=== PATIENT | male | born 1945 | race Caucasian/White ===

== ENCOUNTER 2016-10-12 09:21 | Day surgery (SDC) | payer MEDICARE, OTHER ==
[~2016-10-12 09:21] MED LIST: EPINEPHrine 1:1000 1 MG/ML SDV ONE; Lactated Ringers 1,000 ML IV SCH; Lidocaine 1% 2 ML SDV ONE; Lidocaine 1%/Sod Bicarbonate in NS 8.4% 1 ML Syringe IV PRN; Midazolam 1 MG/ML 2 ML SDV ONE; Ondansetron 4 MG/2 ML SDV ONE; Propofol 200 MG/20 ML SDV ONE; Rocuronium 50 MG/5 ML Vial ONE; Ropivacaine 0.5% 5 MG/ML 30 ML SDV ONE; Sodium Chloride 0.9% 10 ML Syringe FLUSH PRN; fentaNYL 250 MCG/5 ML SDV ONE
--- NOTE | 2016-10-12 09:44 | PCM.PREANE ---
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 Respiratory: Reports: no symptoms Cardiovascular: Reports: blood pressure problem, dyspnea on exertion (sometimes - walked 3 miles and did) GI: Reports: no symptoms Other: Reports: easy bruising, sinus problem (mouth breather) - PHYSICAL ASSESSMENT HR: 66 O2 Sat by Pulse Oximetry: 95 RR: 16 BP: 121/86 Temp: 98.3 F Height: 5 ft 9 in Weight: 79.832 kg NPO Status Date: 10/11/16 NPO Status Time: 21:00 ASA Class: 3 Mental Status: alert & oriented x3 Airway Class: Mallampati = 1 Dentition: Reports: normal dentition, missing tooth/teeth Thyro-Mental Finger Breadths: 2 Mouth Opening Finger Breadths: 3 ROM/Head Extension: full Respiratory Status: lungs clear to auscultation bilaterally Cardiovascular Status: regular rate & rhythm, normal S1, S2, no murmur, blood pressure WNL - LAB Values: Laboratory Last Values MRSA (PCR) Negative 10/10/16 10:37 labs reviewed. - IMAGING/EKG Impressions: 10/09/16 ekg sr 57 - ALLERGIES Allergies/Adverse Reactions: Allergies Allergy/AdvReac Type Severity Reaction Status Date / Time Sulfa (Sulfonamide Allergy Hives Verified 10/12/16 10:24 Antibiotics) - BLOOD Blood Available: No - ANESTHESIA PLAN Medication Ordered: Betablocker Beta Yovani: Metoprolol Beta-Yovani Last Dose Date: 10/12/16 Beta-Yovain Last Dose Time: 08:15 Anesthesia Type Planned: general anesthesia - ACKNOWLEDGEMENTS Pt an appropriate candidate for the planned anesthesia: Yes Alternatives and risks of anesthesia discussed w pt/guardian: Yes Pt/Guardian understands and agree with anesthesia plan: Yes PreAnesthesia Questionnaire HEENT History: Reports: Impaired vision Cardiovascular History: Reports: CAD, Hypertension, PTCA Respiratory History: Reports: None Gastrointestinal History: Reports: GERD, Other (see below) Other Gastrointestinal History: esophagitis Genitourinary History: Reports: BPH, Other (see below) Other Genitourinary History: prostatitis 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 Musculoskeletal History: Reports: Osteoarthritis Other Musculoskeletal History: osteoarthritis spine with myelopathy, synovial cyst of spinal spine, rotator cuff disorder, bursitis Neurological History: Reports: Other (see below) Other Neuro History: dizziness, headache Psychiatric History: Reports: None Endocrine/Metabolic History: Reports: None Hematologic History: Reports: Other (see below) Other Hematologic History: bacteremia Immunologic History: Reports: None Oncologic (Cancer) History: Reports: None Dermatologic History: Reports: None - Past Surgical History Head Surgeries/Procedures: Reports: None HEENT Surgical History: Reports: Other (see below) Other HEENT Surgeries/Procedures: keratomy to right eye Cardiovascular Surgical History: Reports: Coronary artery bypass, Other (see below) Other Cardiovascular Surgeries/Procedures: PTCA with stent GI Surgical History: Reports: Colonoscopy Neurological Surgical History: Reports: Other (see below) (back surgery times 2- 3) Musculoskeletal Surgical History: Reports: Other (see below) (ankle) - SUBSTANCE USE Smoking Status *Q: Former Smoker (quit december 1971) Tobacco Use Within Last Twelve Months: Snuff/Dip (quit 2) Second Hand Smoke Exposure: No Days Per Week of Alcohol Use: 7 Number of Drinks Per Day: 3 (whiskey) Total Drinks Per Week: 21 Date of Last Drink: 10/11/16 Time of Last Drink: 20:00 (2 whiskey) Recreational Drug Use History: No - HOME MEDS Home Medications: Home Meds Furosemide [Lasix] 20 mg PO DAILY 04/23/14 [History] Pravastatin [Pravachol] 20 mg PO DAILY 04/23/14 [History] Tamsulosin [Flomax] 0.4 mg PO DAILY 04/23/14 [History] Metoprolol Succinate [Toprol XL] 200 mg PO DAILY 12/25/14 [History] Multivitamin [Multi-Vitamin Daily] 2 tab PO DAILY 12/25/14 [History] Nitroglycerin [Nitrostat] 1 tab SL ASDIRECTED 10/11/16 [History] Reumofan 1 dose PO DAILY 10/11/16 [History] Ubidecarenone [Coq-10] 1 cap PO DAILY 10/11/16 [History] Acetaminophen/HYDROcodone [[place] 325-5 MG] 1 - 2 tab PO Q6H PRN #40 tablet 10/12 [Rx] Cyclobenzaprine [Flexeril] 10 mg PO TID PRN #40 tablet 10/12/16 [Rx] - CURRENT (IN HOUSE) MEDS Current Meds: Current Medications Lactated Ringer's (Ringers, Lactated) 1,000 mls @ 125 mls/hr IV ASDIRECTED TONI Stop: 10/12/16 23:00 Lidocaine/Sodium Bicarbonate (Buffered Lidocaine 1% In Ns 8.4%) 0.25 ml IV ONETIME PRN PRN Reason: Prior to IV Start Stop: 10/12/16 18:00 Sodium Chloride (Saline Flush) 10 ml FLUSH ASDIRECTED PRN PRN Reason: Keep Vein Open Stop: 10/12/16 18:00 Discontinued Medications Epinephrine HCl (Adrenalin 1:1000) Confirm Administered Dose 1 mg .ROUTE .STK- MED ONE Stop: 10/12/16 08:31 Fentanyl (Sublimaze) Confirm Administered Dose 250 mcg .ROUTE .STK-MED ONE Stop: 10/12/16 08:46 Lidocaine HCl (Lidocaine 1%) Confirm Administered Dose 4 ml .ROUTE .STK-MED ONE Stop: 10/12/16 08:00 Lidocaine HCl (Lidocaine 1%) Confirm Administered Dose 4 ml .ROUTE .STK-MED ONE Stop: 10/12/16 08:46 Midazolam HCl (Versed 1 Mg/Ml) Confirm Administered Dose 2 mg .ROUTE .STK-MED ONE Stop: 10/12/16 08:46 Ondansetron HCl (Zofran) Confirm Administered Dose 4 mg .ROUTE .STK-MED ONE Stop: 10/12/16 08:45 Propofol (Diprivan 20 Ml) Confirm Administered Dose 200 mg .ROUTE .STK-MED ONE Stop: 10/12/16 08:00 Rocuronium [place] (Zemuron) Confirm Administered Dose 50 mg .ROUTE .STK-MED ONE Stop: 10/12/16 08:45 Ropivacaine (Naropin 0.5%) Confirm Administered Dose 30 ml .ROUTE .STK-MED ONE Stop: 10/12/16 08:32
[2016-10-12] MEDS ORDERED: EPINEPHrine 1:1000 1 MG/ML 30 ML MDV ONE (10:13)
[2016-10-12] MEDS ORDERED: Triamcinolone Acetonide 40 MG/ML 1 ML MDV ONE ×2 (10:13→10:14)
[2016-10-12] MEDS ORDERED: ceFAZolin 1 GM Vial ONE (10:26)
--- NOTE | 2016-10-12 10:29 | PCM.SN ---
- Free Text/Narrative Note: [id number] Time out performed. Requested to place left interscale block with ultrasound guidance and nerve stimulator for post op pain control per Dr. Urbina and patient. Preop diagnosis left shoulder pain. Procedure is left shoulder arthrosocpy with rotator cuff repair and any indicated procedures. Informed consent obtained. Monitors and O2 placed at 2 l per n/c. Versed 2 mg and Fentanyl 50 mcg given IV total. Patient awake and talking during procedure. Left neck and clavicle area prepped with chlorprep. Sterile gloves, hat and mask worn. US probe with sterile sleeve placed midclavicular with ID of brachial plexus and subclavian artery. Brachial plexus followed cephalad to level of cricoid. Lidocaine 1% local anesthetic injected prior to block placement. 22 g 2 inch stimplex needle advanced with US guidance to brachial plexus. Positive forearm response at ..4mA with nerve stimulator. Ceased with saline injection.Ropivacaine 0.5% with epi 1:200,000 injected in increments of 5 ml with negative aspiration before each injection to a total of 30 ml. Good spread of local anesthetic seen on US. Patient tolerated procedure well. Vitals stable with no complaints. See nurses notes. Benjie CHURCHILL
[2016-10-12] MEDS ORDERED: ePHEDrine/Normal Saline 25 MG/5 ML Syringe ONE ×2 (11:17→11:40)
[2016-10-12] MEDS ORDERED: Phenylephrine/Normal Saline 100 MCG/ML 10 ML Syringe ONE (11:41)
[2016-10-12] MEDS ORDERED: Lactated Ringers 1,000 ML ONE (11:55)
[2016-10-12] MEDS: Bupivacaine 0.25% 30 ML SDV ONE ×2 (12:35→12:50)
[2016-10-12] MEDS ORDERED: fentaNYL 100 MCG/2 ML SDV IVPUSH PRN (13:00)
[2016-10-12] MEDS ORDERED: Meperidine PF 50 MG/ML Syringe IVPUSH PRN (13:00)
[2016-10-12] MEDS ORDERED: HYDROmorphone 0.5 MG/0.5 ML Syringe IVPUSH PRN (13:00)
[2016-10-12] MEDS ORDERED: Ondansetron 4 MG/2 ML SDV IVPUSH PRN (13:00)
--- NOTE | 2016-10-12 13:00 | PCM.POSTAN ---
POST ANESTHESIA ASSESSMENT - MENTAL STATUS Mental Status: alert, oriented - VITAL SIGNS Pulse Rate: 78 SaO2: 96 Resp Rate: 12 Blood Pressure: 126/80 Temperature: 97.1 F - RESPIRATORY Respiratory Status: respiratory rate WNL, airway patent, O2 saturation stable, supplemental oxygen - CARDIOVASCULAR CV Status: pulse rate WNL, blood pressure stable - GASTROINTESTINAL GI Status: no symptoms - PAIN Pain Score: 0 - POST OP HYDRATION Hydration Status: adequate & stable
--- NOTE | 2016-10-12 13:51 | PCM48HPAN ---
Post Anesthesia Note - EVALUATION WITHIN 48HRS OF ANESTHETIC Vital Signs in Normal Range: Yes Patient Participated in Evaluation: Yes Respiratory Function Stable: Yes Airway Patent: Yes Cardiovascular Function Stable: Yes Hydration Status Stable: Yes Pain Control Satisfactory: Yes Nausea and Vomiting Control Satisfactory: Yes Mental Status Recovered: Yes
[2016-10-12 14:05] VITALS: BP 117/81
--- NOTE | 2016-10-30 08:57 | PCM.OPNOTE ---
- General Post-Op/Procedure Note Date of Surgery/Procedure: 11/09/16 Operative Procedure(s): left shoulder arthroscopy with biceps tenotomy with massive rotator cuff repair and right shoulder steroid injection Pre Op Diagnosis: left shoulder rotator cuff tear. left shoulder biceps tendinopathy. right shoulder rotator cuff tear Post-Op Diagnosis: Same Anesthesia Technique: General ET tube, Local, Regional block Primary Surgeon: Joe Urbina Anesthesia Provider: Annette Rios Structures Technician: Farhana Robison Complications: None Condition: Good
--- NOTE | 2016-10-30 09:49 | OR ---
DATE OF OPERATION: 10/12/2016 SURGEON: Joe Urbina MD OPERATION PERFORMED: Left shoulder video arthroscopy with biceps tenotomy with massive rotator cuff repair and right shoulder steroid injection. PREOPERATIVE DIAGNOSIS: 1. Left shoulder rotator cuff tear. 2. Left shoulder biceps tendinopathy. 3. Right shoulder rotator cuff tear. POSTOPERATIVE DIAGNOSIS: 1. Left shoulder rotator cuff tear. 2. Left shoulder biceps tendinopathy. 3. Right shoulder rotator cuff tear. ANESTHESIA: General endotracheal intubation with local and regional block. ANESTHESIA PROVIDER: Annette Rios CRNA. SPINNER TENDER: Farhana Robison PA-C ESTIMATED BLOOD LOSS: 5 mL. COMPLICATIONS: None. CONDITION: Stable. DESCRIPTION OF PROCEDURE: The patient was identified in the preop holding area. Proper site was marked and identified by the surgeon. The patient was taken back to the operating theater, where after adequate anesthesia, the patient was placed in a lazy right lateral decubitus position. All bony prominences were well padded. A wedge was placed posteriorly. The patient's left shoulder was then sterilely prepped and draped in the usual sterile fashion. OR-wide time-out was performed. The patient received 2 grams of IV Ancef. At this time, a posterior incision was made. The scope trocar was introduced, after 12 pounds of traction was applied to the left upper extremity. The scope trocar was introduced into the glenohumeral joint. There was noted to be significant erythema throughout the glenohumeral joint. Biceps tendon showed significant fraying throughout the intra-articular portion, so biceps tenodesis was unable to be performed. At this time, we did a tenotomy including part of the superior labrum of the biceps tendon after an anterior portal was created. There was noted to be a large massive rotator cuff tear at both the supra and infraspinatus tendons with retraction nearly to the glenoid. There was no significant chondromalacia noted of the glenoid or the humeral head. At this time, scope trocar was removed and placed in the subacromial space. A lateral portal was created. At this time, there was excursion of the tendon, although, we did have to medialize the footprint. The footprint was then medialized with the use of a resector and a bur. Two medial 4.75 Arthrex SwiveLock anchors were then placed medially. The 2 limbs of the FiberWire were then tied for the anchors, and then the limbs of the FiberTape were brought out laterally, and two 4.75 SwiveLock anchors were placed out laterally for a double-row repair. There was found to be good adequate repair of the rotator cuff at this time. Excess saline was drained from the shoulder. At this time, a right shoulder corticosteroid injection was done. Under sterile technique, 2 mL of 40 mg Kenalog and 4 mL of 0.25% Marcaine were injected into the right subacromial space. The patient tolerated both procedures well and was sent to PACU in stable condition. BEENA /[id number]
== END 2016-10-12 15:20 | disposition home or self-care (01) ==
LOC: JD.SDS 09:21
PROVIDERS: ATTEND Orthopaedic Surgery
PROC: 0LM24ZZ Reattachment of Left Shoulder Tendon, Percutaneous Endoscopic Approach (ICD-10-PCS; principal; 2016-10-12)
PROC: 3E0U33Z Introduction of Anti-inflammatory into Joints, Percutaneous Approach (ICD-10-PCS; 2016-10-12)
DX: M75.122 Complete rotator cuff tear or rupture of left shoulder, not specified as traumatic (principal); M75.111 Incomplete rotator cuff tear or rupture of right shoulder, not specified as traumatic; M75.22 Bicipital tendinitis, left shoulder; M25.512 Pain in left shoulder; M25.511 Pain in right shoulder
CPT/HCPCS: 20610; 29827; 87641; C1713; J0171; J0690; J2250; J2405; J2795; J3010; J3301; J7050; J7120; 01630; 64415; J2704; J3490

== ENCOUNTER 2017-12-20 06:35 | Day surgery (SDC) | payer MEDICARE, OTHER ==
[~2017-12-20 06:35] MED LIST changes: -EPINEPHrine 1:1000 1 MG/ML SDV ONE; -Lidocaine 1% 2 ML SDV ONE; +Lidocaine 1%/Sod Bicarbonate in NS 8.4% 1 ML Syringe IDERM PRN; -Lidocaine 1%/Sod Bicarbonate in NS 8.4% 1 ML Syringe IV PRN; -Midazolam 1 MG/ML 2 ML SDV ONE; -Ondansetron 4 MG/2 ML SDV ONE; -Propofol 200 MG/20 ML SDV ONE; -Rocuronium 50 MG/5 ML Vial ONE; -Ropivacaine 0.5% 5 MG/ML 30 ML SDV ONE; -fentaNYL 250 MCG/5 ML SDV ONE
[2017-12-20] MEDS ORDERED: Propofol 200 MG/20 ML SDV ONE (06:51)
[2017-12-20] MEDS ORDERED: Lidocaine 1% 4 ML ONE (06:51)
[2017-12-20] MEDS ORDERED: Lidocaine 1% 2 ML ONE (06:51)
[2017-12-20] MEDS ORDERED: Rocuronium 50 MG/5 ML Vial ONE (06:51)
[2017-12-20] MEDS ORDERED: fentaNYL 250 MCG/5 ML SDV ONE (06:51)
[2017-12-20] MEDS ORDERED: Ondansetron 4 MG/2 ML SDV ONE (06:51)
[2017-12-20] MEDS ORDERED: Midazolam 1 MG/ML 2 ML SDV ONE (06:51)
[2017-12-20] MEDS ORDERED: Ropivacaine 0.5% 5 MG/ML 30 ML SDV ONE (06:59)
[2017-12-20] MEDS ORDERED: EPINEPHrine 1 MG/ML SDV ONE (06:59)
[2017-12-20] MEDS ORDERED: Bupivacaine 0.25% 30 ML SDV ONE (07:16)
--- NOTE | 2017-12-20 07:22 | PCM.PREANE ---
Preanesthetic Assessment - Anesthesia/Transfusion/Family Hx Anesthesia History: Prior Anesthesia Without Reaction Family History of Anesthesia Reaction: No Transfusion History: Prior Transfusion Without Reaction - Review of Systems General: No Symptoms Pulmonary: No Symptoms Cardiovascular: No Symptoms Gastrointestinal: No Symptoms Neurological: No Symptoms Other: Reports: Easy Bruising, Depression (sometimes) - Physical Assessment NPO Status Date: 12/19/17 NPO Status Time: 20:30 Pulse: 60 O2 Sat by Pulse Oximetry: 96 Respiratory Rate: 17 Blood Pressure: 127/71 Temperature: 97.3 F Height: 5 ft 9 in Weight: 77 kg ASA Class: 3 Mental Status: Alert & Oriented x3 Airway Class: Mallampati = 1 Dentition: Reports: Normal Dentition, Broken Tooth/Teeth Thyro-Mental Finger Breadths: 3 Mouth Opening Finger Breadths: 3 ROM/Head Extension: Full Lungs: Clear to Auscultation, Normal Respiratory Effort Cardiovascular: Regular Rate, Regular Rhythm - Lab Values: Laboratory Last Values MRSA (PCR) Negative 12/14/17 10:35 - Allergies Allergies/Adverse Reactions: Allergies Allergy/AdvReac Type Severity Reaction Status Date / Time Sulfa (Sulfonamide Allergy Hives Verified 12/19/17 15:03 Antibiotics) - Blood Blood Available: No - Anesthesia Plan Beta Yovani: Metoprolol Med Last Dose Date: 12/20/17 (05) - Acknowledgements Anesthesia Type Planned: General Anesthesia Pt an Appropriate Candidate for the Planned Anesthesia: Yes Alternatives and Risks of Anesthesia Discussed w Pt/Guardian: Yes Pt/Guardian Understands and Agrees with Anesthesia Plan: Yes PreAnesthesia Questionnaire HEENT History: Reports: Impaired Vision Cardiovascular History: Reports: CAD, Hypertension, PTCA Respiratory History: Reports: Other (See Below) Other Respiratory History: pulmonary nodules Gastrointestinal History: Reports: GERD, Other (See Below) Other Gastrointestinal History: esophagitis Genitourinary History: Reports: BPH, Other (See Below) Other Genitourinary History: prostatitis, bacteremia 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 Musculoskeletal History: Reports: Osteoarthritis Other Musculoskeletal History: osteoarthritis spine with myelopathy, synovial cyst of spinal spine, rotator cuff disorder, bursitis Neurological History: Reports: None, Other (See Below) Other Neuro History: dizziness, headache Psychiatric History: Reports: None Endocrine/Metabolic History: Reports: None, Osteopenia, Vitamin D Deficiency Hematologic History: Reports: None, Other (See Below) Other Hematologic History: bacteremia Immunologic History: Reports: None Oncologic (Cancer) History: Reports: None Dermatologic History: Reports: None - Past Surgical History Head Surgeries/Procedures: Reports: None HEENT Surgical History: Reports: Other (See Below) Other HEENT Surgeries/Procedures: keratomy to right eye Cardiovascular Surgical History: Reports: Coronary Artery Bypass, Other (See Below) Other Cardiovascular Surgeries/Procedures: PTCA with stent Respiratory Surgical History: Reports: None GI Surgical History: Reports: Colonoscopy Female Surgical History: Reports: None Male Surgical History: Reports: None Endocrine Surgical History: Reports: None Neurological Surgical History: Reports: None, Other (See Below) Musculoskeletal Surgical History: Reports: Shoulder Surgery, Other (See Below) ( back times 4 and ankle) Dermatological Surgical History: Reports: None - SUBSTANCE USE Smoking Status *Q: Former Smoker Tobacco Use Within Last Twelve Months: No Second Hand Smoke Exposure: No Days Per Week of Alcohol Use: 7 (whiskey and beer) Number of Drinks Per Day: 2 Total Drinks Per Week: 14 Recreational Drug Use History: No - HOME MEDS Home Medications: Home Meds Furosemide [Lasix] 20 mg PO DAILY 04/23/14 [History] Tamsulosin [Flomax] 0.4 mg PO DAILY 04/23/14 [History] Metoprolol Succinate [Toprol XL] 200 mg PO DAILY 12/25/14 [History] Ubidecarenone [Coq-10] 1 cap PO DAILY 10/11/16 [History] Allopurinol [Zyloprim] 100 mg PO DAILY 12/19/17 [History] Aspirin 81 mg PO DAILY 12/19/17 [History] Cholecalciferol (Vitamin D3) [Vitamin D3] 5,000 unit PO DAILY 12/19/17 [History] Colchicine 0.6 mg PO DAILY 12/19/17 [History] Omeprazole 20 mg PO DAILY 12/19/17 [History] Acetaminophen/HYDROcodone [[place] 325-5 MG] 1 - 2 tab PO Q6H PRN #40 tablet 12/20 [Rx] Cyclobenzaprine [Flexeril] 10 mg PO Q8H PRN #40 tab 12/20/17 [Rx] - CURRENT (IN HOUSE) MEDS Current Meds: Current Medications Epinephrine HCl (Adrenalin) 3 mg .XX ONETIME ONE Stop: 12/20/17 08:46 Lactated Ringer's (Ringers, Lactated) 1,000 mls @ 125 mls/hr IV ASDIRECTED OTNI Stop: 12/20/17 23:00 Lidocaine/Sodium Bicarbonate (Buffered Lidocaine 1% In Ns 8.4%) 0.25 ml IDERM ONETIME PRN PRN Reason: Prior to IV Start Stop: 12/20/17 18:00 Sodium Chloride (Saline Flush) 10 ml FLUSH ASDIRECTED PRN PRN Reason: Keep Vein Open Stop: 12/20/17 18:00 Discontinued Medications Epinephrine HCl (Adrenalin) Confirm Administered Dose 1 mg .ROUTE .STK-MED ONE Stop: 12/20/17 07:00 Fentanyl (Sublimaze) Confirm Administered Dose 250 mcg .ROUTE .STK-MED ONE Stop: 12/20/17 06:52 Lidocaine HCl (Xylocaine-Mpf 1%) Confirm Administered Dose 4 mls @ as directed .ROUTE .STK-MED ONE Stop: 12/20/17 06:52 Lidocaine HCl (Xylocaine-Mpf 1%) Confirm Administered Dose 2 mls @ as directed .ROUTE .STK-MED ONE Stop: 12/20/17 06:52 Midazolam HCl (Versed 1 Mg/Ml) Confirm Administered Dose 2 mg .ROUTE .STK-MED ONE Stop: 12/20/17 06:52 Ondansetron HCl (Zofran) Confirm Administered Dose 4 mg .ROUTE .STK-MED ONE Stop: 12/20/17 06:52 Propofol (Diprivan 20 Ml) Confirm Administered Dose 200 mg .ROUTE .STK-MED ONE Stop: 12/20/17 06:52 Rocuronium [place] (Zemuron) Confirm Administered Dose 50 mg .ROUTE .STK-MED ONE Stop: 12/20/17 06:52 Ropivacaine (Naropin 0.5%) Confirm Administered Dose 30 ml .ROUTE .STK-MED ONE Stop: 12/20/17 07:00
--- NOTE | 2017-12-20 07:57 | PCM.SN ---
- Free Text/Narrative Note: 12/20/17 [id number] Time out performed. Requested to place right interscale block with ultrasound guidance and nerve stimulator for post op pain control per Dr. Urbina and patient. Preop diagnosis right shoulder pain. Procedure is right shoulder arthrosocpy with rotator cuff repair. Informed consent obtained. Monitors and O2 placed at 2 l per n/c. Versed 2 mg and Fentanyl 100 mcg given IV total. Patient awake and talking during procedure. Right neck and clavicle area prepped with chlorprep. Sterile gloves, hat and mask worn. US probe with sterile sleeve placed midclavicular with ID of brachial plexus and subclavian artery. Brachial plexus followed cephalad to level of cricoid. Lidocaine 1% local anesthetic injected prior to block placement. 22 g 2 inch stimplex needle advanced with US guidance to brachial plexus. Positive forearm response at .33 mA with nerve stimulator. Ceased with saline injection. Ropivacaine 0.5% with epi 1:200,000 injected in increments of 5 ml with negative aspiration before each injection to a total of 30 ml. Good spread of local anesthetic seen on US. Patient tolerated procedure well. Vitals stable with no complaints. See nurses notes for vitals. Benjie CHURCHILL
[2017-12-20] MEDS ORDERED: ceFAZolin 1 GM Vial ONE (08:21)
[2017-12-20] MEDS ORDERED: ePHEDrine 50 MG/ML SDV ONE (08:28)
[2017-12-20] MEDS ORDERED: HYDROmorphone 0.5 MG/0.5 ML Syringe IVPUSH PRN (08:39)
[2017-12-20] MEDS ORDERED: fentaNYL 100 MCG/2 ML SDV IVPUSH PRN (08:39)
[2017-12-20] MEDS ORDERED: Ondansetron 4 MG/2 ML SDV IVPUSH PRN (08:39)
[2017-12-20] MEDS ORDERED: Meperidine PF 50 MG/ML Syringe IVPUSH PRN (08:39)
[2017-12-20] MEDS ORDERED: Lactated Ringers 1,000 ML ONE (08:41)
[2017-12-20] MEDS ORDERED: EPINEPHrine 1 MG/ML 30 ML MDV ONE (08:45)
[2017-12-20] MEDS ORDERED: Neostigmine Methylsulfate 1 MG/ML 5 ML Syringe ONE (09:04)
--- NOTE | 2017-12-20 10:06 | PCM.POSTAN ---
POST ANESTHESIA ASSESSMENT - MENTAL STATUS Mental Status: Alert, Oriented - VITAL SIGNS Pulse Rate: 68 SaO2: 95 Resp Rate: 15 Blood Pressure: 121/69 Temperature: 97.7 F - RESPIRATORY Respiratory Status: Respiratory Rate WNL, Airway Patent, O2 Saturation Stable, Supplemental Oxygen - CARDIOVASCULAR CV Status: Pulse Rate WNL, Blood Pressure Stable - GASTROINTESTINAL GI Status: No Symptoms - PAIN Pain Score: 0 - POST OP HYDRATION Hydration Status: Adequate & Stable
[2017-12-20 13:14] VITALS: BP 111/65
--- NOTE | 2017-12-27 07:36 | PCM.OPNOTE ---
- General Post-Op/Procedure Note Date of Surgery/Procedure: 12/20/17 Operative Procedure(s): right shoulder video arthroscopy with rotator cuff repair, biceps tenotomy, and limited debridement Pre Op Diagnosis: right shoulder rotator cuff tear with biceps tendinopathy Post-Op Diagnosis: Same Anesthesia Technique: General ET Tube, Regional Block Primary Surgeon: Joe Urbina Anesthesia Provider: Annette Rios Manager [employer]: Farhana Robison EBL in mLs: 5 Complications: None Condition: Good
--- NOTE | 2017-12-27 10:35 | OR ---
DATE OF OPERATION: 12/20/2017 SURGEON: Joe Urbina MD OPERATION PERFORMED: Right shoulder video arthroscopy, rotator cuff repair, biceps tenotomy, and limited debridement. PREOPERATIVE DIAGNOSIS: Right shoulder rotator cuff tear with biceps tendinopathy. POSTOPERATIVE DIAGNOSIS: Right shoulder rotator cuff tear with biceps tendinopathy. ANESTHESIA: General endotracheal intubation with regional interscalene block. ANESTHESIA PROVIDER: Annette Rios CRNA. ABSTRACT CLERK: Farhana Robison PA-C. ESTIMATED BLOOD LOSS: 5 mL. COMPLICATIONS: None. CONDITION: Stable. DESCRIPTION OF PROCEDURE: The patient was identified in the preoperative holding area. Proper site was marked and identified by the surgeon. The patient was taken back to the operative theater. Right after adequate anesthesia, the patient was placed in a lazy left lateral decubitus position. A wedge was placed posteriorly. All bony prominences were well padded and the patient was secured to the table. At this time, right upper extremity was steriley prepped and draped in the usual sterile fashion. OR time-out was performed. The patient received 2 g IV Ancef. At this time, right upper extremity was placed in 12 pounds of traction. At this time, posterior incision was made. Scope trocar was introduced into glenohumeral joint. Glenohumeral joint showed no signs of chondromalacia. There was noted to be no full-thickness tear on the articular side of the rotator cuff. The patient was noted to have significant biceps tendinopathy with significant fraying and biceps tenodesis was going to be unavailable secondary to the amount of fraying. At this time, biceps tenotomy was performed including part of the labral complex and it was noted to have good secure wedging of the biceps tendon in the bicipital groove. At this time, a debridement was done in the glenohumeral joint as well as synovitis. The subscapularis was noted to be torn on the upper outer edge. At this time, a punch and a tap was used on the humeral head near the upper outer edge and a 4.75 mm Arthrex SwiveLock anchor was placed. A FiberTape was then placed in a horizontal mattress suture fashion through the subscapularis, upper outer edge, and then was tensioned through the eyelet and the anchor was then placed. At this time, tension was applied. It was noted to have adequate repair of the upper outer edge of the subscapularis. At this time, the sutures were then cut and it was found to have adequate repair. Attention was turned to the subacromial space. Subacromial space was noted to have significant synovitis. The patient was noted to have a significant tear at the midsubstance of the rotator cuff at the supra and infraspinatus. At this time, it was not full thickness. It was more towards the myotendinous junction. At this time, I decided that I would do a [id number] repair and bring it all out laterally with a 4.75 mm Arthrex SwiveLock anchor. At this time, 2 limbs of FiberTape were then passed medially through the mid-substance tear and tension was applied and then 2 Arthrex 4.75 mm Arthrex SwiveLock anchors were brought out laterally. There was noted to be good opposition of the noted mid-substance tear near the myotendinous junction with good watertight repair. At this time, a limited debridement was done of the subacromial space as well as synovitis. The subacromial decompression was not needed as the patient had type 1 acromion. Otherwise, excess saline was drained from the shoulder. A 3-0 nylon simple suture was used for closure of the skin. The patient was placed in a pillow sling and a sterile soft dressing and sent to PACU in stable condition. BEENA /[id number]
== END 2017-12-20 11:54 | disposition home or self-care (01) ==
LOC: JD.SDS 06:35
PROVIDERS: ATTEND Orthopaedic Surgery
DX: M75.111 Incomplete rotator cuff tear or rupture of right shoulder, not specified as traumatic (principal); M65.811 Other synovitis and tenosynovitis, right shoulder; E78.2 Mixed hyperlipidemia; I25.10 Atherosclerotic heart disease of native coronary artery without angina pectoris; Z87.891 Personal history of nicotine dependence; Z88.2 Allergy status to sulfonamides; Z79.899 Other long term (current) drug therapy; M25.512 Pain in left shoulder
CPT/HCPCS: 29827; 87641; J0171; J0690; J2001; J2250; J2405; J2710; J2795; J3010; J3490; J7120; 01630; 64415; J2704

== ENCOUNTER 2018-10-21 08:13 | Inpatient (IN) | payer MEDICARE, OTHER ==
[~2018-10-21 08:13] MED LIST changes: +Acetaminophen 325 MG Tab PO SCH; +EPINEPHrine 1 MG/ML SDV ONE; +Lidocaine 1% 4 ML ONE; +Pregabalin 25 MG Cap PO SCH; +Ropivacaine 0.5% 5 MG/ML 30 ML SDV ONE; +oxyCODONE ER 10 MG TAB.ER PO SCH
[2018-10-21] MEDS ORDERED: Lidocaine 1% 4 ML ONE (09:55)
[2018-10-21] MEDS ORDERED: Lactated Ringers 1,000 ML ONE ×3 (09:55→12:44)
[2018-10-21] MEDS ORDERED: Ondansetron 4 MG/2 ML SDV ONE (09:55)
[2018-10-21] MEDS ORDERED: fentaNYL 250 MCG/5 ML SDV ONE (09:56)
[2018-10-21] MEDS ORDERED: Propofol 200 MG/20 ML SDV ONE (09:56)
[2018-10-21] MEDS ORDERED: Midazolam 1 MG/ML 2 ML SDV ONE (09:56)
[2018-10-21] MEDS ORDERED: Lidocaine 1% 2 ML ONE (10:07)
--- NOTE | 2018-10-21 10:15 | PCM.PREANE ---
Preanesthetic Assessment - Anesthesia/Transfusion/Family Hx Anesthesia History: Prior Anesthesia Without Reaction Family History of Anesthesia Reaction: No Transfusion History: Prior Transfusion Without Reaction Intubation History: Unknown - Review of Systems General: No Symptoms Pulmonary: No Symptoms (Former smoker quit in1971/Drinks 2 whiskey drinks per day) Cardiovascular: No Symptoms (2012 angioplasty/1996 CABG times 3/HTN, CAD) Gastrointestinal: No Symptoms (GERD) Neurological: No Symptoms (chronic lower back pain), Numbness (bilateral finger numbness noted on occasion), Gait Disturbance Other: Reports: None, Sinus Problem (sinus drainage), Anxiety - Physical Assessment NPO Status Date: 10/20/18 NPO Status Time: 23:00 Pulse: 65 O2 Sat by Pulse Oximetry: 97 Respiratory Rate: 16 Blood Pressure: 123/81 Temperature: 36.4 C Vital Signs: Last Vital Signs Temp 36.4 C 10/21/18 09:00 Pulse 65 10/21/18 09:00 Resp 16 10/21/18 09:00 BP 123/81 10/21/18 09:00 Pulse Ox 97 10/21/18 09:00 Height: 1.75 m Weight: 80.739 kg ASA Class: 3 Mental Status: Alert & Oriented x3 Airway Class: Mallampati = 2 Dentition: Reports: Normal Dentition, Caries Thyro-Mental Finger Breadths: 3 Mouth Opening Finger Breadths: 3 ROM/Head Extension: Full Lungs: Clear to Auscultation, Normal Respiratory Effort Cardiovascular: Regular Rate, Regular Rhythm, No Murmurs - Lab Values: MRSA screen negative. All lab values reviewed and noted and within acceptable ranges to proceed with scheduled procedure. - Imaging/EKG Impressions: CXR: negative, scarring in the bases. EKG: SR rate=72, abnormal R-wave progression noted. - Allergies Allergies/Adverse Reactions: Allergies Allergy/AdvReac Type Severity Reaction Status Date / Time Sulfa (Sulfonamide Allergy Hives Verified 10/20/18 18:51 Antibiotics) - Anesthesia Plan Pre-Op Medication Ordered: Beta Yovani Beta Yovani: Metoprolol Med Last Dose Date: 10/21/18 Med Last Dose Time: 07:00 - Acknowledgements Anesthesia Type Planned: General Anesthesia (with Left Interscalene block under US guidance for post operative pain control requested by Dr. Urbina.) Pt an Appropriate Candidate for the Planned Anesthesia: Yes Alternatives and Risks of Anesthesia Discussed w Pt/Guardian: Yes Pt/Guardian Understands and Agrees with Anesthesia Plan: Yes PreAnesthesia Questionnaire HEENT History: Reports: Impaired Vision Cardiovascular History: Reports: CAD, Hypertension, PTCA Respiratory History: Reports: Other (See Below) Other Respiratory History: pulmonary nodules Gastrointestinal History: Reports: GERD, Other (See Below) Other Gastrointestinal History: esophagitis Genitourinary History: Reports: BPH, Other (See Below) Other Genitourinary History: prostatitis, bacteremia INFORMATION BROKER History: Reports: None Musculoskeletal History: Reports: Osteoarthritis Other Musculoskeletal History: osteoarthritis spine with myelopathy, synovial cyst of spinal spine, rotator cuff disorder, bursitis Neurological History: Reports: Other (See Below) Other Neuro History: dizziness, headache, synovial cyst of lumbar spine Psychiatric History: Reports: None Endocrine/Metabolic History: Reports: None, Osteopenia, Vitamin D Deficiency Hematologic History: Reports: None, Other (See Below) Other Hematologic History: bacteremia Immunologic History: Reports: None Oncologic (Cancer) History: Reports: None Dermatologic History: Reports: None - Past Surgical History Head Surgeries/Procedures: Reports: None HEENT Surgical History: Reports: Eye Surgery, Other (See Below) Other HEENT Surgeries/Procedures: keratomy to right eye Cardiovascular Surgical History: Reports: Coronary Artery Bypass, Other (See Below) Other Cardiovascular Surgeries/Procedures: PTCA with stent Respiratory Surgical History: Reports: None GI Surgical History: Reports: Colonoscopy Female Surgical History: Reports: None Male Surgical History: Reports: None Endocrine Surgical History: Reports: None Neurological Surgical History: Reports: None, Other (See Below) Other Neurological Surgeries/Procedures: multiple back surgeries Musculoskeletal Surgical History: Reports: Shoulder Surgery, Other (See Below) Other Musculoskeletal Surgeries/Procedures:: ankle surgery Dermatological Surgical History: Reports: None - SUBSTANCE USE Smoking Status *Q: Former Smoker Recreational Drug Use History: No - HOME MEDS Home Medications: Home Meds Furosemide [Lasix] 20 mg PO DAILY 04/23/14 [History] Tamsulosin [Flomax] 0.4 mg PO DAILY 04/23/14 [History] Metoprolol Succinate [Toprol XL] 200 mg PO DAILY 12/25/14 [History] Ubidecarenone [Coq-10] 200 mg PO DAILY 10/11/16 [History] Allopurinol [Zyloprim] 100 mg PO BID 12/19/17 [History] Aspirin 81 mg PO DAILY 12/19/17 [History] Cholecalciferol (Vitamin D3) [Vitamin D3] 5,000 unit PO DAILY 12/19/17 [History] Omeprazole 20 mg PO DAILY 12/19/17 [History] Calcium Carbonate [Calcium] 600 mg PO BID 10/20/18 [History] Pravastatin [Pravachol] 40 mg PO DAILY 10/20/18 [History] - CURRENT (IN HOUSE) MEDS Current Meds: Current Medications Acetaminophen (Tylenol) 975 mg PO ONETIME [facility] Stop: 10/21/18 14:00 Last Admin: 10/21/18 09:44 Dose: 975 mg Aspirin (Ecotrin) 325 mg PO DAILY OTNI Bisacodyl (Dulcolax) 5 mg PO DAILY PRN PRN Reason: Constipation Cyclobenzaprine HCl (Flexeril) 10 mg PO TID PRN PRN Reason: Spasms Docusate Sodium (Colace) 100 mg PO BID TONI Famotidine (Pepcid) 20 mg PO Q12H [facility] Lactated Ringer's (Ringers, Lactated) 1,000 mls @ 125 mls/hr IV ASDIRECTED [facility] Stop: 10/21/18 23:00 Last Admin: 10/21/18 09:10 Dose: 125 mls/hr Cefazolin Sodium/Dextrose 2 gm (/ Premix) 50 mls @ 100 mls/hr IV Q8H [facility] Stop: 10/22/18 00:44 Ketorolac Tromethamine (Toradol) 15 mg IVPUSH Q6H PRN PRN Reason: Pain Lidocaine/Sodium Bicarbonate (Buffered Lidocaine 1% In Ns 8.4%) 0.25 ml IDERM ONETIME PRN PRN Reason: Prior to IV Start Stop: 10/21/18 18:00 Last Admin: 10/21/18 09:10 Dose: 0.25 ml Magnesium Hydroxide (Milk Of Magnesia) 30 ml PO BID PRN PRN Reason: Constipation Morphine Sulfate (Morphine) 2 mg IVPUSH Q2H PRN PRN Reason: Breakthrough Pain Naloxone HCl (Narcan) 0.1 mg IVPUSH Q5M PRN PRN Reason: Oversedation Ondansetron HCl (Zofran) 4 mg IVPUSH Q6H PRN PRN Reason: Nausea/Vomiting Oxycodone HCl (Oxycontin) 10 mg PO ONETIME [facility] Stop: 10/21/18 14:00 Last Admin: 10/21/18 09:45 Dose: 10 mg Oxycodone/Acetaminophen (Percocet 325-5 Mg) 1 - 2 tab PO Q4H PRN PRN Reason: Pain Pregabalin (Lyrica) 50 mg PO ONETIME [facility] Stop: 10/21/18 14:00 Last Admin: 10/21/18 09:45 Dose: 50 mg Senna (Senna) 8.6 mg PO BID PRN PRN Reason: Constipation Sodium Chloride (Saline Flush) 10 ml FLUSH ASDIRECTED PRN PRN Reason: Keep Vein Open Stop: 10/21/18 18:00 Discontinued Medications Cefazolin Sodium (Ancef) Confirm Administered Dose 2 gm .ROUTE .STK-MED ONE Stop: 10/21/18 09:56 Epinephrine HCl (Adrenalin) Confirm Administered Dose 1 mg .ROUTE .STK-MED ONE Stop: 10/21/18 07:18 Fentanyl (Sublimaze) Confirm Administered Dose 250 mcg .ROUTE .STK-MED ONE Stop: 10/21/18 09:57 Lidocaine HCl (Xylocaine-Mpf 1%) Confirm Administered Dose 4 mls @ as directed .ROUTE .STK-MED ONE Stop: 10/21/18 07:18 Lidocaine HCl (Xylocaine-Mpf 1%) Confirm Administered Dose 4 mls @ as directed .ROUTE .STK-MED ONE Stop: 10/21/18 09:56 Lactated Ringer's (Ringers, Lactated) Confirm Administered Dose 1,000 mls @ as directed .ROUTE .STK-MED ONE Stop: 10/21/18 09:56 Midazolam HCl (Versed 1 Mg/Ml) Confirm Administered Dose 2 mg .ROUTE .STK-MED ONE Stop: 10/21/18 09:57 Ondansetron HCl (Zofran) Confirm Administered Dose 4 mg .ROUTE .STK-MED ONE Stop: 10/21/18 09:56 Propofol (Diprivan 20 Ml) Confirm Administered Dose 400 mg .ROUTE .STK-MED ONE Stop: 10/21/18 09:57 Ropivacaine (Naropin 0.5%) Confirm Administered Dose 30 ml .ROUTE .STK-MED ONE Stop: 10/21/18 07:18
[2018-10-21] MEDS ORDERED: Bupivacaine 0.25% 30 ML SDV ONE (10:27)
[2018-10-21] MEDS ORDERED: ceFAZolin 1 GM Vial ONE (10:27)
--- NOTE | 2018-10-21 11:24 | PCM.SN ---
- Free Text/Narrative Note: Anesthesia Note: (Left Interscalene Block Note) Date: 10/21/2018 Time Out: 1100 Start: 1100 Stop: 1113 Surgical Procedure: Left Reverse Total Shoulder Arthroplasty Diagnosis Left shoulder osteoarthritis Current Procedure: Left interscalene block under US guidance for postoperative pain control requested by Dr. Urbina. Patient chart reviewed, risk/benefits discussed with patient, consent obtained. Patient positioned supine, monitors/alarms on, oxygen placed via nasal cannula at 2 LPM. IV sedation administered: Fentanyl 100mcg IV @ 1103 Left shoulder prepped with two chloropreps. Sterile drapes placed with aseptic technique noted. Under US guidance, left subclavian artery visualized along with the left brachial plexus. Plexus followed up to C6 cricoid level, and area localized with 2mls of 1% lidocaine. 22gauge 2 inch stimiplex needle advanced under US with 0.6mV with stimulation of biceps noted. Good stimulation noted with decreased voltage and absent at 0.2mVs. 1ml of Normal Saline injected with loss of stimulation noted to confirm needle not placed intraneurally. Incremental dosing of 5mls with negative aspiration noted prior to each injection of 0.5% ropivacaine with 1:200,000 epinephrine. Total volume=30mls. Please refer to nurses noted for vital signs. Smitha Whittaker CRNA
[2018-10-21] MEDS ORDERED: Ketorolac 30 MG/ML SDV ONE (11:46)
[2018-10-21] MEDS ORDERED: Dexamethasone 4 MG/ML SDV ONE (11:46)
[2018-10-21] MEDS: ceFAZolin 1 GM Vial ONE ×2 (12:31→12:47)
[2018-10-21] MEDS: Iodine/Sodium Iodide 2% Tincture 30 ML Bottle ONE ×2 (12:31→12:45)
[2018-10-21] MEDS: Vancomycin 1 GM SDV ONE ×2 (12:32→12:52)
[2018-10-21] MEDS ORDERED: ePHEDrine/Normal Saline 25 MG/5 ML Syringe ONE (12:38)
[2018-10-21] MEDS ORDERED: Phenylephrine/Normal Saline 100 MCG/ML 10 ML Syringe ONE (12:39)
[2018-10-21] MEDS ORDERED: Sennosides 8.6 MG Tab PO PRN (13:00)
[2018-10-21] MEDS ORDERED: Ondansetron 4 MG/2 ML SDV IVPUSH PRN ×2 (13:00→13:31)
[2018-10-21] MEDS ORDERED: Magnesium Hydroxide 400 MG/5 ML Susp 30 ML Cup PO PRN (13:00)
[2018-10-21] MEDS ORDERED: Naloxone 0.4 MG/ML SDV IVPUSH PRN (13:00)
[2018-10-21] MEDS ORDERED: Bisacodyl 5 MG Tab PO PRN (13:00)
[2018-10-21] MEDS ORDERED: Cyclobenzaprine 10 MG Tab PO PRN (13:00)
[2018-10-21] MEDS ORDERED: Morphine 2 MG/ML Syringe IVPUSH PRN (13:00)
--- NOTE | 2018-10-21 13:30 | PCM.POSTAN ---
POST ANESTHESIA ASSESSMENT - MENTAL STATUS Mental Status: Alert, Oriented - VITAL SIGNS Pulse Rate: 58 SaO2: 100 Resp Rate: 8 Blood Pressure: 109/68 Temperature: 36.6 C - RESPIRATORY Respiratory Status: Respiratory Rate WNL, Airway Patent, O2 Saturation Stable - CARDIOVASCULAR CV Status: Pulse Rate WNL, Blood Pressure Stable - GASTROINTESTINAL GI Status: No Symptoms - PAIN Pain Score: 0 - POST OP HYDRATION Hydration Status: Adequate & Stable
[2018-10-21] MEDS ORDERED: fentaNYL 100 MCG/2 ML SDV IVPUSH PRN (13:31)
[2018-10-21] MEDS ORDERED: diphenhydrAMINE 50 MG/ML SDV IVPUSH PRN (13:31)
--- NOTE | 2018-10-21 13:50 | CR ---
Left shoulder: Two fluoroscopic spot views of the left shoulder were obtained utilizing C-arm device. Comparison: Previous MRI left shoulder study of 06/28/17. Reverse left shoulder prosthesis is seen. Components are aligned. Underlying bony structures are grossly intact. Fluoroscopy time is given as 1.9 seconds. Impression: 1. Procedural study of left reverse shoulder prosthesis placement. Diagnostic code #2
--- NOTE | 2018-10-21 13:57 | CR ---
Left shoulder: Single AP view of the left shoulder was obtained. Comparison: Prior MRI left shoulder study of 06/28/17. Left shoulder prosthesis is seen. Components are aligned. Underlying bony structures are intact. Small amount of soft tissue air is noted from recent surgical procedure. Impression: 1. Satisfactory appearance of recently placed left shoulder prosthesis. Diagnostic code #2
--- NOTE | 2018-10-21 17:38 | PCM.CONS ---
H&P History of Present Illness - General Date of Service: 10/21/18 Admit Problem/Dx: Admission Diagnosis/Problem Admission Diagnosis/Problem Osteoarthritis of shoulder Source of Information: Patient, Provider History Limitations: Reports: No Limitations - History of Present Illness Initial Comments - Free Text/Narative: Frederick is a 73 yo male patient of Dr. Urbina who is post-operative day 0 of L reverse TSA. Hospital medicine was consulted for post-operative medical care. At this time he is stable. Pain is controlled. He denies any chest pain, shortness of breath, palpitations, nausea, vomiting. He carries a history of: HTN, CAD (PTCA 2012), CABG x 3 (1996), C-Spine surgery, OA, prostatitis, Bacteremia. He is a full code. His PCP is Dr. Oliveira. He is a previous smoker ( quit 2011). - Related Data Allergies/Adverse Reactions: Allergies Allergy/AdvReac Type Severity Reaction Status Date / Time Sulfa (Sulfonamide Allergy Hives Verified 10/20/18 18:51 Antibiotics) Home Medications: Home Meds Furosemide [Lasix] 20 mg PO DAILY 04/23/14 [History] Tamsulosin [Flomax] 0.4 mg PO DAILY 04/23/14 [History] Metoprolol Succinate [Toprol XL] 200 mg PO DAILY 12/25/14 [History] Ubidecarenone [Coq-10] 200 mg PO DAILY 10/11/16 [History] Allopurinol [Zyloprim] 100 mg PO DAILY 12/19/17 [History] Cholecalciferol (Vitamin D3) [Vitamin D3] 5,000 unit PO DAILY 12/19/17 [History] Omeprazole 20 mg PO DAILY 12/19/17 [History] Calcium Carbonate [Calcium] 1,200 mg PO DAILY 10/20/18 [History] Pravastatin [Pravachol] 40 mg PO DAILY 10/20/18 [History] Acetaminophen/oxyCODONE [Percocet 325-5 MG] 1 - 2 tab PO Q6H PRN #60 tablet [Rx] Aspirin [Ecotrin] 325 mg PO DAILY #40 tab.ec 10/21/18 [Rx] Bisacodyl [Dulcolax] 5 mg PO DAILY PRN tablet 10/21/18 [Rx] Cyclobenzaprine [Flexeril] 10 mg PO TID PRN #40 tablet 10/21/18 [Rx] Docusate Sodium [Colace] 100 mg PO BID cap 10/21/18 [Rx] Magnesium Hydroxide [Milk of Magnesia] 30 ml PO BID PRN cup 10/21/18 [Rx] [place]is+D Sufficiency. 4 tab PO DAILY 10/21/18 [History] Sennosides [Senna] 8.6 mg PO BID PRN tablet 10/21/18 [Rx] Past Medical History HEENT History: Reports: Impaired Vision Cardiovascular History: Reports: CAD, Hypertension, PTCA Other Cardiovascular History: Stent placed 2012 Respiratory History: Reports: Other (See Below) Other Respiratory History: pulmonary nodules Gastrointestinal History: Reports: GERD, Other (See Below) Other Gastrointestinal History: esophagitis Genitourinary History: Reports: BPH, Other (See Below) Other Genitourinary History: prostatitis, bacteremia FINANCE LECTURER History: Reports: None Musculoskeletal History: Reports: Osteoarthritis Other Musculoskeletal History: osteoarthritis spine with myelopathy, synovial cyst of spinal spine, rotator cuff disorder, bursitis Neurological History: Reports: Other (See Below) Other Neuro History: dizziness, headache, synovial cyst of lumbar spine Psychiatric History: Reports: None Endocrine/Metabolic History: Reports: None, Osteopenia, Vitamin D Deficiency Hematologic History: Reports: None, Other (See Below) Other Hematologic History: bacteremia Immunologic History: Reports: None Oncologic (Cancer) History: Reports: None Dermatologic History: Reports: None - Infectious Disease History Infectious Disease History: Reports: Chicken Pox, Measles - Past Surgical History Head Surgeries/Procedures: Reports: None HEENT Surgical History: Reports: Eye Surgery, Other (See Below) Other HEENT Surgeries/Procedures: keratomy to right eye Cardiovascular Surgical History: Reports: Coronary Artery Bypass, Other (See Below) Other Cardiovascular Surgeries/Procedures: PTCA with stent Respiratory Surgical History: Reports: None GI Surgical History: Reports: Colonoscopy Female Surgical History: Reports: None Male Surgical History: Reports: None Endocrine Surgical History: Reports: None Neurological Surgical History: Reports: None, Other (See Below) Other Neurological Surgeries/Procedures: multiple back surgeries Musculoskeletal Surgical History: Reports: Shoulder Surgery, Other (See Below) Other Musculoskeletal Surgeries/Procedures:: ankle surgery Dermatological Surgical History: Reports: None Social & Family History - Family History Family Medical History: Noncontributory - Tobacco Use Smoking Status *Q: Former Smoker Used Tobacco, but Quit: Yes Month/Year Tobacco Last Used: 1971 Second Hand Smoke Exposure: No - Caffeine Use Caffeine Use: Reports: Coffee - Alcohol Use Days Per Week of Alcohol Use: 1 Number of Drinks Per Day: 7 Total Drinks Per Week: 7 Date of Last Drink: 10/19/17 Time of Last Drink: 20:00 - Recreational Drug Use Recreational Drug Use: No H&P Review of Systems - Review of Systems: Review Of Systems: See Below General: Reports: No Symptoms. Denies: Fever, Chills HEENT: Reports: No Symptoms Pulmonary: Reports: No Symptoms. Denies: Shortness of Breath, Cough Cardiovascular: Reports: No Symptoms. Denies: Chest Pain Gastrointestinal: Reports: No Symptoms. Denies: Abdominal Pain, Diarrhea, Nausea, Vomiting Genitourinary: Reports: No Symptoms Musculoskeletal: Reports: No Symptoms Skin: Reports: No Symptoms Psychiatric: Reports: No Symptoms Neurological: Reports: No Symptoms Hematologic/Lymphatic: Reports: No Symptoms Immunologic: Reports: No Symptoms Exam - Exam Exam: See Below - Vital Signs Vital Signs: Last Vital Signs Temp 97.2 F 10/21/18 14:15 Pulse 77 10/21/18 14:24 Resp 14 10/21/18 14:24 BP 106/75 10/21/18 14:24 Pulse Ox 97 10/21/18 14:24 Weight: 178 lb - Exam Quality Assessment: Supplemental Oxygen (1L NC), DVT Prophylaxis General: Alert, Oriented, 4 HEENT: Conjunctiva Clear, EACs Clear, EOMI, Hearing Intact, Mucosa Moist & [place] , Nares Patent, Normal Nasal Septum, Posterior Pharynx Clear, PERRLA Neck: Supple, Trachea Midline, 2 Lungs: Clear to Auscultation, Normal Respiratory Effort Cardiovascular: Regular Rate, Regular Rhythm GI/Abdominal Exam: Normal Bowel Sounds, Soft, Non-Tender, No Organomegaly, No Distention, No Abnormal Bruit, No Mass, Pelvis Stable (Male) Exam: Deferred Rectal (Males) Exam: Deferred Back Exam: Normal Inspection Extremities: Normal Inspection, Non-Tender, No Pedal Edema, Normal Capillary Refill, Limited Range of Motion (s/p reverse TSA) Peripheral Pulses: 2+: Radial (L), Radial (R), Posterior Tibial (L), Posterior Tibial (R), Dorsalis Pedis (L), Dorsalis Pedis (R) Skin: Warm, Dry, Intact, Other (bandage is dry and intact) Neurological: Cranial Nerves Intact (grossly) Neuro Extensive - Mental Status: Alert, Oriented x3, Normal Mood/Affect, Normal Cognition, Memory Intact Psychiatric: Alert, Normal Affect, Normal Mood Consult PN Assessment/Plan POD#: 0 Procedures: Procedures ARTHROSCOP ROTATOR CUFF REPR (12/20/17) ASSAY OF BLOOD/URIC ACID (08/01/16) AUTOMATED PLATELET COUNT (01/22/17) BONE IMAGING (3D) (10/18/17) BONE IMAGING WHOLE BODY (10/18/17) C-REACTIVE PROTEIN (08/01/16) COMPLETE CBC W/AUTO DIFF WBC (08/01/16) COMPREHEN METABOLIC PANEL (08/01/16) DRAIN/INJ JOINT/BURSA W/O US (10/12/16) DXA BONE DENSITY AXIAL (09/17/17) EMERGENCY DEPT VISIT (04/23/14) MR-STAPH DNA AMP PROBE (12/20/17) MRI JOINT UPR EXTREM W/O DYE (06/28/17) MRI LUMBAR SPINE W/O & W/DYE (10/01/17) MRI LUMBAR SPINE W/O DYE (04/23/14) ROUTINE VENIPUNCTURE (01/22/17) THER/PROPH/DIAG INJ SC/IM (04/23/14) THROMBOPLASTIN TIME PARTIAL (12/25/14) X-RAY EXAM HIP UNI 2-3 VIEWS (02/13/17) X-RAY EXAM L-2 SPINE 4/>VWS (10/01/17) X-RAY EXAM L-S SPINE 2/3 VWS (02/13/17) X-RAY EXAM OF FOOT (08/01/16) X-RAY EXAM OF PELVIS (10/01/17) (1) Instability of reverse total arthroplasty of left shoulder SNOMED Code(s): 436727877 Code(s): T84.028A - DISLOCATION OF OTHER INTERNAL JOINT PROSTHESIS, INIT ENCNTR; Z96.612 - PRESENCE OF LEFT ARTIFICIAL SHOULDER JOINT Priority: High Current Visit: Yes Problem List Initiated/Reviewed/Updated: Yes Plan: I/P: Acute: S/P - Left Reverse total shoulder arthoplasty post-operative day 0 -DVT prophylaxis and pain management per primary care team -PT/OT -IS/RT -Monitor oxygen saturation -Titrate oxygen as needed -Vital signs stable -Monitor labs: -Hgb 15.7 -GFR 71 Osteoarthritis -Pain management per primary team Chronic: HTN CAD (PTCA 2012) CABG x 3 (1996) C-Spine surgery OA Prostatitis Bacteremia Plan: CM for discharge planning Routine AM labs GI/DVT/PE prophylaxis Home medications as indicated Other orders as listed above Routine AM labs He is a full code. PCP is Dr. Oliveira. Thank you for allowing us to participate in the care of this patient!
[2018-10-21] MEDS: ceFAZolin 2 GM in Premix Bag 1 BAG IV SCH (18:01)
[2018-10-21] MEDS: Acetaminophen/oxyCODONE 325-5 MG Tab PO PRN (20:42)
[2018-10-21] MEDS: Docusate Sodium 100 MG Cap PO SCH (20:42)
[2018-10-21] MEDS: Calcium Carbonate 600 MG Tab PO SCH (20:49)
[2018-10-21] MEDS ORDERED: Famotidine 20 MG Tab PO SCH (21:00)
[2018-10-22] MEDS: Ketorolac 15 MG/ML SDV IVPUSH PRN ×2 (00:42→06:19)
[2018-10-22] MEDS: ceFAZolin 2 GM in Premix Bag 1 BAG IV SCH ×2 (03:40→09:42)
--- NOTE | 2018-10-22 07:14 | PCM.CONSN ---
- General Info Date of Service: 10/22/18 Admission Dx/Problem (Free Text): Admission Diagnosis/Problem Admission Diagnosis/Problem Osteoarthritis of shoulder Functional Status: Reports: Pain Controlled, Tolerating Diet, Ambulating, Urinating. Denies: New Symptoms, Incentive Spirometry - Review of Systems General: Reports: No Symptoms. Denies: Fever, Weakness, Fatigue, Malaise, Chills HEENT: Reports: No Symptoms. Denies: Headaches, Sore Throat Pulmonary: Reports: No Symptoms. Denies: Shortness of Breath, Cough, Sputum, Wheezing Cardiovascular: Reports: No Symptoms. Denies: Chest Pain, Palpitations, Dyspnea on Exertion, Lightheadedness Gastrointestinal: Reports: No Symptoms. Denies: Abdominal Pain, Constipation, Diarrhea, Nausea, Vomiting Genitourinary: Reports: No Symptoms. Denies: Pain Musculoskeletal: Reports: Shoulder Pain Skin: Reports: No Symptoms Neurological: Reports: No Symptoms. Denies: Confusion Psychiatric: Reports: No Symptoms - Patient Data Vitals - Most Recent: Last Vital Signs Temp 97.2 F 10/21/18 14:15 Pulse 78 10/22/18 03:33 Resp 14 10/22/18 03:33 BP 105/75 10/22/18 03:33 Pulse Ox 95 10/22/18 03:33 Weight - Most Recent: 186 lb I&O - Last 24 Hours: Intake & Output 10/21/18 10/22/18 10/22/18 22:59 06:59 14:59 Intake Total 370 700 Output Total 550 Balance 370 150 Lab Results Last 24 Hours: Laboratory Results - last 24 hr 10/22/18 10/22/18 Range/Units 05:35 05:35 WBC 8.47 (4.23-9.07) K/mm3 RBC 4.09 L (4.63-6.08) M/mm3 Hgb 13.1 L (13.7-17.5) gm/L Hct 38.5 L (40.1-51.0) % MCV 94.1 H (79.0-92.2) fl MCH 32.0 (25.7-32.2) pg MCHC 34.0 (32.2-35.5) g/dl RDW Std Deviation 42.9 (35.1-43.9) fL Plt Count 174 (163-337) K/mm3 MPV 10.0 (9.4-12.3) fl Sodium 136 (136-145) mEq/L Potassium 4.5 (3.5-5.1) mEq/L Chloride 103 (98-107) mEq/L Carbon Dioxide 25 (21-32) mEq/L Anion Gap 12.5 (5-15) BUN 15 (7-18) mg/dL Creatinine 1.2 (0.7-1.3) mg/dL Est Cr Clr Drug Dosing 55.64 mL/min Estimated GFR (MDRD) 60 (>60) mL/min BUN/Creatinine Ratio 12.5 L (14-18) Glucose 126 H (83-115) mg/dL Calcium 8.5 (8.5-10.1) mg/dL Total Bilirubin 0.5 (0.2-1.0) mg/dL AST 16 (15-37) U/L ALT 26 (16-63) U/L Alkaline Phosphatase 83 (46-116) U/L Total Protein 5.8 L (6.4-8.2) g/dl Albumin 2.7 L (3.4-5.0) g/dl Globulin 3.1 gm/dL Albumin/Globulin Ratio 0.9 L (1-2) Med Orders - Current: Current Medications Allopurinol (Zyloprim) 100 mg PO DAILY [facility] Aspirin (Ecotrin) 325 mg PO DAILY [facility] Bisacodyl (Dulcolax) 5 mg PO DAILY PRN PRN Reason: Constipation Calcium Carbonate/Glycine (Calcium Carbonate) 600 mg PO BID [facility] Last Admin: 10/21/18 20:49 Dose: 600 mg Cholecalciferol (Vitamin D3) 5,000 unit PO DAILY [facility] Cyclobenzaprine HCl (Flexeril) 10 mg PO TID PRN PRN Reason: Spasms Docusate Sodium (Colace) 100 mg PO BID [facility] Last Admin: 10/21/18 20:42 Dose: 100 mg Furosemide (Lasix) 20 mg PO DAILY [facility] Cefazolin Sodium/Dextrose 2 gm (/ Premix) 50 mls @ 100 mls/hr IV Q8H [facility] Stop: 10/22/18 10:59 Last Admin: 10/22/18 03:40 Dose: 100 mls/hr Influenza Virus Vaccine (Fluzone High-Dose Syringe) 180 mcg IM .ONCE ONE Stop: 10/22/18 12:01 Ketorolac Tromethamine (Toradol) 15 mg IVPUSH Q6H PRN PRN Reason: Pain Last Admin: 10/22/18 06:19 Dose: 15 mg Magnesium Hydroxide (Milk Of Magnesia) 30 ml PO BID PRN PRN Reason: Constipation Metoprolol Succinate (Toprol Xl) 200 mg PO DAILY [facility] Morphine Sulfate (Morphine) 2 mg IVPUSH Q2H PRN PRN Reason: Breakthrough Pain Naloxone HCl (Narcan) 0.1 mg IVPUSH Q5M PRN PRN Reason: Oversedation Ondansetron HCl (Zofran) 4 mg IVPUSH Q6H PRN PRN Reason: Nausea/Vomiting Last Admin: 10/21/18 15:31 Dose: 4 mg Oxycodone/Acetaminophen (Percocet 325-5 Mg) 1 - 2 tab PO Q4H PRN PRN Reason: Pain Last Admin: 10/21/18 20:42 Dose: 2 tab Pantoprazole Sodium (Protonix) 40 mg PO DAILY [facility] Senna (Senna) 8.6 mg PO BID PRN PRN Reason: Constipation Simvastatin (Zocor) 20 mg PO DAILY [facility] Tamsulosin HCl (Flomax) 0.4 mg PO DAILY [facility] Discontinued Medications Acetaminophen (Tylenol) 975 mg PO ONETIME [facility] Stop: 10/21/18 14:00 Last Admin: 10/21/18 09:44 Dose: 975 mg Bupivacaine HCl (Marcaine 0.25%) Confirm Administered Dose 30 ml .ROUTE .STK- MED ONE Stop: 10/21/18 10:28 Cefazolin Sodium (Ancef) Confirm Administered Dose 2 gm .ROUTE .STK-MED ONE Stop: 10/21/18 09:56 Last Admin: 10/21/18 12:47 Dose: 2 gm Cefazolin Sodium (Ancef) Confirm Administered Dose 2 gm .ROUTE .STK-MED ONE Stop: 10/21/18 10:28 Dexamethasone (Dexamethasone) Confirm Administered Dose 8 mg .ROUTE .STK-MED ONE Stop: 10/21/18 11:47 Diphenhydramine HCl (Benadryl) 25 mg IVPUSH Q6H PRN PRN Reason: Pruritis Stop: 10/21/18 16:00 Ephedrine Sulfate (Ephedrine In Ns) Confirm Administered Dose 50 mg .ROUTE .STK- MED ONE Stop: 10/21/18 12:39 Epinephrine HCl (Adrenalin) Confirm Administered Dose 1 mg .ROUTE .STK-MED ONE Stop: 10/21/18 07:18 Famotidine (Pepcid) 20 mg PO Q12H [facility] Fentanyl (Sublimaze) Confirm Administered Dose 250 mcg .ROUTE .STK-MED ONE Stop: 10/21/18 09:57 Fentanyl (Sublimaze) 50 mcg IVPUSH Q5M PRN PRN Reason: Pain Stop: 10/21/18 16:00 Lactated Ringer's (Ringers, Lactated) 1,000 mls @ 125 mls/hr IV ASDIRECTED [facility] Stop: 10/21/18 23:00 Last Admin: 10/21/18 09:10 Dose: 125 mls/hr Lidocaine HCl (Xylocaine-Mpf 1%) Confirm Administered Dose 4 mls @ as directed .ROUTE .STK-MED ONE Stop: 10/21/18 07:18 Lidocaine HCl (Xylocaine-Mpf 1%) Confirm Administered Dose 4 mls @ as directed .ROUTE .STK-MED ONE Stop: 10/21/18 09:56 Lactated Ringer's (Ringers, Lactated) Confirm Administered Dose 1,000 mls @ as directed .ROUTE .STK-MED ONE Stop: 10/21/18 09:56 Lidocaine HCl (Xylocaine-Mpf 1%) Confirm Administered Dose 2 mls @ as directed .ROUTE .STK-MED ONE Stop: 10/21/18 10:08 Lactated Ringer's (Ringers, Lactated) Confirm Administered Dose 1,000 mls @ as directed .ROUTE .STK-MED ONE Stop: 10/21/18 12:45 Lactated Ringer's (Ringers, Lactated) Confirm Administered Dose 1,000 mls @ as directed .ROUTE .STK-MED ONE Stop: 10/21/18 12:45 Influenza Virus Vaccine (Pharmacy To Dose - Influenza Vaccine) 1 each IM ONETIME ONE Stop: 10/21/18 14:51 Iodine (Iodine 2% Mild Tincture) Confirm Administered Dose 30 ml .ROUTE .STK- MED ONE Stop: 10/21/18 10:28 Last Admin: 10/21/18 12:45 Dose: 18 ml Ketorolac Tromethamine (Toradol) Confirm Administered Dose 30 mg .ROUTE .STK- MED ONE Stop: 10/21/18 11:47 Lidocaine/Sodium Bicarbonate (Buffered Lidocaine 1% In Ns 8.4%) 0.25 ml IDERM ONETIME PRN PRN Reason: Prior to IV Start Stop: 10/21/18 18:00 Last Admin: 10/21/18 09:10 Dose: 0.25 ml Midazolam HCl (Versed 1 Mg/Ml) Confirm Administered Dose 2 mg .ROUTE .STK-MED ONE Stop: 10/21/18 09:57 Non-Formulary Medication (Ubidecarenone) 200 mg PO DAILY [facility] Ondansetron HCl (Zofran) Confirm Administered Dose 4 mg .ROUTE .STK-MED ONE Stop: 10/21/18 09:56 Ondansetron HCl (Zofran) 4 mg IVPUSH ONETIME PRN PRN Reason: Nausea/Vomiting Oxycodone HCl (Oxycontin) 10 mg PO ONETIME [facility] Stop: 10/21/18 14:00 Last Admin: 10/21/18 09:45 Dose: 10 mg Phenylephrine HCl (Phenylephrine In Ns 100 Mcg/Ml) Confirm Administered Dose 2 mg .ROUTE .STK-MED ONE Stop: 10/21/18 12:40 Pregabalin (Lyrica) 50 mg PO ONETIME [facility] Stop: 10/21/18 14:00 Last Admin: 10/21/18 09:45 Dose: 50 mg Propofol (Diprivan 20 Ml) Confirm Administered Dose 400 mg .ROUTE .STK-MED ONE Stop: 10/21/18 09:57 Ropivacaine (Naropin 0.5%) Confirm Administered Dose 30 ml .ROUTE .STK-MED ONE Stop: 10/21/18 07:18 Sodium Chloride (Saline Flush) 10 ml FLUSH ASDIRECTED PRN PRN Reason: Keep Vein Open Stop: 10/21/18 18:00 Tranexamic Acid (Cyklokapron) Confirm Administered Dose 1,000 mg .ROUTE .STK- MED ONE Stop: 10/21/18 10:28 Last Admin: 10/21/18 12:53 Dose: 1,000 mg Vancomycin HCl (Vancomycin) Confirm Administered Dose 1 gm .ROUTE .STK-MED ONE Stop: 10/21/18 10:28 Last Admin: 10/21/18 12:52 Dose: 1 gm - Exam Quality Assessment: DVT Prophylaxis General: Alert, Oriented, Cooperative, No Acute Distress HEENT: Pupils Equal, Pupils Reactive, EOMI, Mucous Membr. Moist/[place] Neck: Supple, Trachea Midline Lungs: Clear to Auscultation, Normal Respiratory Effort Cardiovascular: Regular Rate, Regular Rhythm GI/Abdominal Exam: Normal Bowel Sounds, Soft, Non-Tender, No Distention, No Abnormal Bruit (Male) Exam: Deferred Back Exam: Normal Inspection, Full Range of Motion Extremities: No Pedal Edema, Normal Capillary Refill, Arm Pain (right shoulder ) , Limited Range of Motion, Other (Bandage in palce on left arm. Cooling pack in place. ) Peripheral Pulses: 2+: Radial (L), Radial (R), Dorsalis Pedis (L), Dorsalis Pedis (R) Skin: Warm, Dry, Intact Neurological: No New Focal Deficit Psy/Mental Status: Alert, Normal Affect, Normal Mood Consult PN Assessment/Plan POD#: 1 Procedures: Procedures ARTHROSCOP ROTATOR CUFF REPR (12/20/17) ASSAY OF BLOOD/URIC ACID (08/01/16) AUTOMATED PLATELET COUNT (01/22/17) BONE IMAGING (3D) (10/18/17) BONE IMAGING WHOLE BODY (10/18/17) C-REACTIVE PROTEIN (08/01/16) COMPLETE CBC W/AUTO DIFF WBC (08/01/16) COMPREHEN METABOLIC PANEL (08/01/16) DRAIN/INJ JOINT/BURSA W/O US (10/12/16) DXA BONE DENSITY AXIAL (09/17/17) EMERGENCY DEPT VISIT (04/23/14) MR-STAPH DNA AMP PROBE (12/20/17) MRI JOINT UPR EXTREM W/O DYE (06/28/17) MRI LUMBAR SPINE W/O & W/DYE (10/01/17) MRI LUMBAR SPINE W/O DYE (04/23/14) ROUTINE VENIPUNCTURE (01/22/17) THER/PROPH/DIAG INJ SC/IM (04/23/14) THROMBOPLASTIN TIME PARTIAL (12/25/14) X-RAY EXAM HIP UNI 2-3 VIEWS (02/13/17) X-RAY EXAM L-2 SPINE 4/>VWS (10/01/17) X-RAY EXAM L-S SPINE 2/3 VWS (02/13/17) X-RAY EXAM OF FOOT (08/01/16) X-RAY EXAM OF PELVIS (10/01/17) (1) S/p reverse total shoulder arthroplasty SNOMED Code(s): 924088274, 115862507 Code(s): Z96.619 - PRESENCE OF UNSPECIFIED ARTIFICIAL SHOULDER JOINT Priority: High Current Visit: Yes Qualifiers: Laterality: left Qualified Code(s): Z96.612 - Presence of left artificial shoulder joint Problem List Initiated/Reviewed/Updated: Yes Plan: I/P: Acute: S/P - Left Reverse total shoulder arthoplasty post-operative day 1 -DVT prophylaxis and pain management per primary care team -PT/OT -IS/RT -Monitor oxygen saturation -Titrate oxygen as needed -Vital signs stable -Monitor labs: -Hgb 15.7; Now 13.1 -GFR 71; Now 60 Osteoarthritis -Pain management per primary team Chronic: HTN CAD (PTCA 2012) CABG x 3 (1996) C-Spine surgery OA Prostatitis Bacteremia Plan: CM for discharge planning Routine AM labs GI/DVT/PE prophylaxis Home medications as indicated Other orders as listed above Routine AM labs He is a full code. PCP is Dr. Oliveira. From a hospitalist standpoint Frederick is doing very well. His pain is controlled and he is up ambulating and working with therapies. Labs and vital signs remain stable. He has urinated and is off of oxygen. He is cleared for discharge pending primary team and PT/OT agreement. Thank you for allowing us to participate in the care of this patient!
--- NOTE | 2018-10-22 08:09 | PCM.SURGPN ---
- General Info Date of Service: 10/22/18 POD#: 1 Functional Status: Reports: Pain Controlled, Tolerating Diet, Ambulating, Urinating, Incentive Spirometry, Other (The pt states his pain is well controlled and he has been up walking in the halls.) - Patient Data Vitals - Most Recent: Last Vital Signs Temp 97.2 F 10/21/18 14:15 Pulse 78 10/22/18 03:33 Resp 14 10/22/18 03:33 BP 105/75 10/22/18 03:33 Pulse Ox 95 10/22/18 03:33 Weight - Most Recent: 186 lb I&O - Last 24 Hours: Intake & Output 10/21/18 10/22/18 10/22/18 22:59 06:59 14:59 Intake Total 370 700 Output Total 550 Balance 370 150 Lab Results Last 24 Hrs: Laboratory Results - last 24 hr 10/22/18 10/22/18 Range/Units 05:35 05:35 WBC 8.47 (4.23-9.07) K/mm3 RBC 4.09 L (4.63-6.08) M/mm3 Hgb 13.1 L (13.7-17.5) gm/L Hct 38.5 L (40.1-51.0) % MCV 94.1 H (79.0-92.2) fl MCH 32.0 (25.7-32.2) pg MCHC 34.0 (32.2-35.5) g/dl RDW Std Deviation 42.9 (35.1-43.9) fL Plt Count 174 (163-337) K/mm3 MPV 10.0 (9.4-12.3) fl Sodium 136 (136-145) mEq/L Potassium 4.5 (3.5-5.1) mEq/L Chloride 103 (98-107) mEq/L Carbon Dioxide 25 (21-32) mEq/L Anion Gap 12.5 (5-15) BUN 15 (7-18) mg/dL Creatinine 1.2 (0.7-1.3) mg/dL Est Cr Clr Drug Dosing 55.64 mL/min Estimated GFR (MDRD) 60 (>60) mL/min BUN/Creatinine Ratio 12.5 L (14-18) Glucose 126 H (83-115) mg/dL Calcium 8.5 (8.5-10.1) mg/dL Total Bilirubin 0.5 (0.2-1.0) mg/dL AST 16 (15-37) U/L ALT 26 (16-63) U/L Alkaline Phosphatase 83 (46-116) U/L Total Protein 5.8 L (6.4-8.2) g/dl Albumin 2.7 L (3.4-5.0) g/dl Globulin 3.1 gm/dL Albumin/Globulin Ratio 0.9 L (1-2) Med Orders - Current: Current Medications Allopurinol (Zyloprim) 100 mg PO DAILY [facility] Aspirin (Ecotrin) 325 mg PO DAILY [facility] Bisacodyl (Dulcolax) 5 mg PO DAILY PRN PRN Reason: Constipation Calcium Carbonate/Glycine (Calcium Carbonate) 600 mg PO BID [facility] Last Admin: 10/21/18 20:49 Dose: 600 mg Cholecalciferol (Vitamin D3) 5,000 unit PO DAILY [facility] Cyclobenzaprine HCl (Flexeril) 10 mg PO TID PRN PRN Reason: Spasms Docusate Sodium (Colace) 100 mg PO BID [facility] Last Admin: 10/21/18 20:42 Dose: 100 mg Furosemide (Lasix) 20 mg PO DAILY [facility] Cefazolin Sodium/Dextrose 2 gm (/ Premix) 50 mls @ 100 mls/hr IV Q8H [facility] Stop: 10/22/18 10:59 Last Admin: 10/22/18 03:40 Dose: 100 mls/hr Influenza Virus Vaccine (Fluzone High-Dose Syringe) 180 mcg IM .ONCE ONE Stop: 10/22/18 12:01 Ketorolac Tromethamine (Toradol) 15 mg IVPUSH Q6H PRN PRN Reason: Pain Last Admin: 10/22/18 06:19 Dose: 15 mg Magnesium Hydroxide (Milk Of Magnesia) 30 ml PO BID PRN PRN Reason: Constipation Metoprolol Succinate (Toprol Xl) 200 mg PO DAILY [facility] Morphine Sulfate (Morphine) 2 mg IVPUSH Q2H PRN PRN Reason: Breakthrough Pain Naloxone HCl (Narcan) 0.1 mg IVPUSH Q5M PRN PRN Reason: Oversedation Ondansetron HCl (Zofran) 4 mg IVPUSH Q6H PRN PRN Reason: Nausea/Vomiting Last Admin: 10/21/18 15:31 Dose: 4 mg Oxycodone/Acetaminophen (Percocet 325-5 Mg) 1 - 2 tab PO Q4H PRN PRN Reason: Pain Last Admin: 10/21/18 20:42 Dose: 2 tab Pantoprazole Sodium (Protonix) 40 mg PO DAILY [facility] Senna (Senna) 8.6 mg PO BID PRN PRN Reason: Constipation Simvastatin (Zocor) 20 mg PO DAILY [facility] Tamsulosin HCl (Flomax) 0.4 mg PO DAILY [facility] Discontinued Medications Acetaminophen (Tylenol) 975 mg PO ONETIME [facility] Stop: 10/21/18 14:00 Last Admin: 10/21/18 09:44 Dose: 975 mg Bupivacaine HCl (Marcaine 0.25%) Confirm Administered Dose 30 ml .ROUTE .STK- MED ONE Stop: 10/21/18 10:28 Cefazolin Sodium (Ancef) Confirm Administered Dose 2 gm .ROUTE .STK-MED ONE Stop: 10/21/18 09:56 Last Admin: 10/21/18 12:47 Dose: 2 gm Cefazolin Sodium (Ancef) Confirm Administered Dose 2 gm .ROUTE .STK-MED ONE Stop: 10/21/18 10:28 Dexamethasone (Dexamethasone) Confirm Administered Dose 8 mg .ROUTE .STK-MED ONE Stop: 10/21/18 11:47 Diphenhydramine HCl (Benadryl) 25 mg IVPUSH Q6H PRN PRN Reason: Pruritis Stop: 10/21/18 16:00 Ephedrine Sulfate (Ephedrine In Ns) Confirm Administered Dose 50 mg .ROUTE .STK- MED ONE Stop: 10/21/18 12:39 Epinephrine HCl (Adrenalin) Confirm Administered Dose 1 mg .ROUTE .STK-MED ONE Stop: 10/21/18 07:18 Famotidine (Pepcid) 20 mg PO Q12H [facility] Fentanyl (Sublimaze) Confirm Administered Dose 250 mcg .ROUTE .STK-MED ONE Stop: 10/21/18 09:57 Fentanyl (Sublimaze) 50 mcg IVPUSH Q5M PRN PRN Reason: Pain Stop: 10/21/18 16:00 Lactated Ringer's (Ringers, Lactated) 1,000 mls @ 125 mls/hr IV ASDIRECTED [facility] Stop: 10/21/18 23:00 Last Admin: 10/21/18 09:10 Dose: 125 mls/hr Lidocaine HCl (Xylocaine-Mpf 1%) Confirm Administered Dose 4 mls @ as directed .ROUTE .STK-MED ONE Stop: 10/21/18 07:18 Lidocaine HCl (Xylocaine-Mpf 1%) Confirm Administered Dose 4 mls @ as directed .ROUTE .STK-MED ONE Stop: 10/21/18 09:56 Lactated Ringer's (Ringers, Lactated) Confirm Administered Dose 1,000 mls @ as directed .ROUTE .STK-MED ONE Stop: 10/21/18 09:56 Lidocaine HCl (Xylocaine-Mpf 1%) Confirm Administered Dose 2 mls @ as directed .ROUTE .STK-MED ONE Stop: 10/21/18 10:08 Lactated Ringer's (Ringers, Lactated) Confirm Administered Dose 1,000 mls @ as directed .ROUTE .STK-MED ONE Stop: 10/21/18 12:45 Lactated Ringer's (Ringers, Lactated) Confirm Administered Dose 1,000 mls @ as directed .ROUTE .STK-MED ONE Stop: 10/21/18 12:45 Influenza Virus Vaccine (Pharmacy To Dose - Influenza Vaccine) 1 each IM ONETIME ONE Stop: 10/21/18 14:51 Iodine (Iodine 2% Mild Tincture) Confirm Administered Dose 30 ml .ROUTE .STK- MED ONE Stop: 10/21/18 10:28 Last Admin: 10/21/18 12:45 Dose: 18 ml Ketorolac Tromethamine (Toradol) Confirm Administered Dose 30 mg .ROUTE .STK- MED ONE Stop: 10/21/18 11:47 Lidocaine/Sodium Bicarbonate (Buffered Lidocaine 1% In Ns 8.4%) 0.25 ml IDERM ONETIME PRN PRN Reason: Prior to IV Start Stop: 10/21/18 18:00 Last Admin: 10/21/18 09:10 Dose: 0.25 ml Midazolam HCl (Versed 1 Mg/Ml) Confirm Administered Dose 2 mg .ROUTE .STK-MED ONE Stop: 10/21/18 09:57 Non-Formulary Medication (Ubidecarenone) 200 mg PO DAILY [facility] Ondansetron HCl (Zofran) Confirm Administered Dose 4 mg .ROUTE .STK-MED ONE Stop: 10/21/18 09:56 Ondansetron HCl (Zofran) 4 mg IVPUSH ONETIME PRN PRN Reason: Nausea/Vomiting Oxycodone HCl (Oxycontin) 10 mg PO ONETIME [facility] Stop: 10/21/18 14:00 Last Admin: 10/21/18 09:45 Dose: 10 mg Phenylephrine HCl (Phenylephrine In Ns 100 Mcg/Ml) Confirm Administered Dose 2 mg .ROUTE .STK-MED ONE Stop: 10/21/18 12:40 Pregabalin (Lyrica) 50 mg PO ONETIME [facility] Stop: 10/21/18 14:00 Last Admin: 10/21/18 09:45 Dose: 50 mg Propofol (Diprivan 20 Ml) Confirm Administered Dose 400 mg .ROUTE .STK-MED ONE Stop: 10/21/18 09:57 Ropivacaine (Naropin 0.5%) Confirm Administered Dose 30 ml .ROUTE .STK-MED ONE Stop: 10/21/18 07:18 Sodium Chloride (Saline Flush) 10 ml FLUSH ASDIRECTED PRN PRN Reason: Keep Vein Open Stop: 10/21/18 18:00 Tranexamic Acid (Cyklokapron) Confirm Administered Dose 1,000 mg .ROUTE .STK- MED ONE Stop: 10/21/18 10:28 Last Admin: 10/21/18 12:53 Dose: 1,000 mg Vancomycin HCl (Vancomycin) Confirm Administered Dose 1 gm .ROUTE .STK-MED ONE Stop: 10/21/18 10:28 Last Admin: 10/21/18 12:52 Dose: 1 gm - Exam Wound/Incisions: Dressing Dry and Intact General: Alert, Cooperative, No Acute Distress Lungs: Normal Respiratory Effort Extremities: Other (NVS intact for BUE. Sruthi's negative for BLE. ) - Problem List Review Problem List Initiated/Reviewed/Updated: Yes - My Orders Last 24 Hours: Active Orders 24 hr Category Date Time Status Patient Status [ADT] Routine ADT 10/21/18 08:10 Active Antiembolic Devices [RC] Care 10/21/18 08:11 Active Influenza Vaccine Charge [RC] .DISCHARGE Care 10/21/18 14:50 Active Notify Provider [RC] Care 10/21/18 13:31 Active RT Incentive Spirometry [RC] Q1HWA Care 10/21/18 08:10 Active Ready for Discharge [RC] PER UNIT ROUTINE Care 10/22/18 08:07 Ordered Vital Signs [RC] Q4HR Care 10/21/18 08:10 Active Consult to Physician [CONS] Routine Cons 10/21/18 08:10 Active OT Evaluation and Treatment [CONS] Routine Cons 10/21/18 08:10 Active PT Evaluation and Treatment [CONS] Routine Cons 10/21/18 08:10 Active Regular Diet [DIET] Diet 10/21/18 Lunch Active Acetaminophen/oxyCODONE [Percocet 325-5 MG] Med 10/21/18 13:00 Active 1 - 2 tab PO Q4H PRN Allopurinol [Zyloprim] Med 10/22/18 09:00 Active 100 mg PO DAILY Aspirin [Ecotrin] Med 10/22/18 09:00 Active 325 mg PO DAILY Bisacodyl [Dulcolax] Med 10/21/18 13:00 Active 5 mg PO DAILY PRN Calcium Carbonate Med 10/21/18 21:00 Active 600 mg PO BID Cholecalciferol (Vitamin D3) [Vitamin D3] Med 10/22/18 09:00 Active 5,000 unit PO DAILY Cyclobenzaprine [Flexeril] Med 10/21/18 13:00 Active 10 mg PO TID PRN Docusate Sodium [Colace] Med 10/21/18 21:00 Active 100 mg PO BID FLU Vacc [id number](65YR UP)/PF [Fluzone High-Dose 2018- Med 10/22/18 12:00 Once 19 Syringe] 180 mcg IM .ONCE ONE Furosemide [Lasix] Med 10/22/18 09:00 Active 20 mg PO DAILY Ketorolac [Toradol] Med 10/21/18 13:00 Active 15 mg IVPUSH Q6H PRN Magnesium Hydroxide [Milk of Magnesia] Med 10/21/18 13:00 Active 30 ml PO BID PRN Metoprolol Succinate [Toprol XL] Med 10/22/18 09:00 Active 200 mg PO DAILY Morphine Med 10/21/18 13:00 Active 2 mg IVPUSH Q2H PRN Naloxone [Narcan] Med 10/21/18 13:00 Active 0.1 mg IVPUSH Q5M PRN Ondansetron [Zofran] Med 10/21/18 13:00 Active 4 mg IVPUSH Q6H PRN Pantoprazole [ProTONIX] Med 10/22/18 09:00 Active 40 mg PO DAILY Sennosides [Senna] Med 10/21/18 13:00 Active 8.6 mg PO BID PRN Simvastatin [Zocor] Med 10/22/18 09:00 Active 20 mg PO DAILY Tamsulosin [Flomax] Med 10/22/18 09:00 Active 0.4 mg PO DAILY ceFAZolin [Ancef] 2 gm Med 10/21/18 18:30 Active Premix Bag 1 bag IV Q8H Antiembolic Hose [OM.PC] Per Unit Routine Oth 10/21/18 08:12 Ordered Ice Therapy [OM.PC] Per Unit Routine Oth 10/21/18 08:11 Ordered Sequential Compression Device [OM.PC] Per Unit Routine Oth 10/21/18 08:10 Ordered Resuscitation Status Routine Resus Stat 10/21/18 08:10 Ordered Medication Orders Allopurinol (Zyloprim) 100 mg PO DAILY [facility] Aspirin (Ecotrin) 325 mg PO DAILY [facility] Bisacodyl (Dulcolax) 5 mg PO DAILY PRN PRN Reason: Constipation Calcium Carbonate/Glycine (Calcium Carbonate) 600 mg PO BID [facility] Last Admin: 10/21/18 20:49 Dose: 600 mg Cholecalciferol (Vitamin D3) 5,000 unit PO DAILY [facility] Cyclobenzaprine HCl (Flexeril) 10 mg PO TID PRN PRN Reason: Spasms Docusate Sodium (Colace) 100 mg PO BID [facility] Last Admin: 10/21/18 20:42 Dose: 100 mg Furosemide (Lasix) 20 mg PO DAILY [facility] Cefazolin Sodium/Dextrose 2 gm (/ Premix) 50 mls @ 100 mls/hr IV Q8H [facility] Stop: 10/22/18 10:59 Last Admin: 10/22/18 03:40 Dose: 100 mls/hr Infusion: 10/21/18 18:31 Dose: 100 mls/hr Admin: 10/21/18 18:01 Dose: 100 mls/hr Influenza Virus Vaccine (Fluzone High-Dose Syringe) 180 mcg IM .ONCE ONE Stop: 10/22/18 12:01 Ketorolac Tromethamine (Toradol) 15 mg IVPUSH Q6H PRN PRN Reason: Pain Last Admin: 10/22/18 06:19 Dose: 15 mg Admin: 10/22/18 00:42 Dose: 15 mg Magnesium Hydroxide (Milk Of Magnesia) 30 ml PO BID PRN PRN Reason: Constipation Metoprolol Succinate (Toprol Xl) 200 mg PO DAILY [facility] Morphine Sulfate (Morphine) 2 mg IVPUSH Q2H PRN PRN Reason: Breakthrough Pain Naloxone HCl (Narcan) 0.1 mg IVPUSH Q5M PRN PRN Reason: Oversedation Ondansetron HCl (Zofran) 4 mg IVPUSH Q6H PRN PRN Reason: Nausea/Vomiting Last Admin: 10/21/18 15:31 Dose: 4 mg Oxycodone/Acetaminophen (Percocet 325-5 Mg) 1 - 2 tab PO Q4H PRN PRN Reason: Pain Last Admin: 10/21/18 20:42 Dose: 2 tab Pantoprazole Sodium (Protonix) 40 mg PO DAILY [facility] Senna (Senna) 8.6 mg PO BID PRN PRN Reason: Constipation Simvastatin (Zocor) 20 mg PO DAILY [facility] Tamsulosin HCl (Flomax) 0.4 mg PO DAILY [facility] - Assessment Assessment (Free Text/Narrative):: POD#1 -left reverse TSA - Plan Plan (Free Text/Narrative):: 1. Hgb 13.1. 2. Discharge to home today. 3. ASA PO daily, frequent mobility. 4. Outpatient therapy. The pt's case was discussed with Dr. Urbina.
--- NOTE | 2018-10-22 08:11 | PCM.DCSUM1 ---
Discharge Summary - Hospital Course Brief History: Frederick is a 73 yo male who underwent left reverse TSA with Dr. Urbina on 10-21-2018. The procedure was completed under general anesthesia with regional block. The pt tolerated the procedure well and was admitted to the Medical-Surgical Unit. Medical management was provided by the Hospitalist service. The pt's Hospital course was uneventful. The pt's Hgb on POD#1 was 13.1. On POD#1, 325mg ASA daily was initiated for VTE prophylaxis. SCDs and TEDs were also ordered. A Mepilex dressing was placed at the incision site at the time of surgery and remained clean and dry. The pt participated in P.T. and O.T. and progressed well. On POD#1, the pt was deemed appropriate to discharge to home with his significant other. - Discharge Data Discharge Date: 10/22/18 Discharge Disposition: Home, Self-Care 01 Condition: Good - Patient Summary/Data Consults: Consultations 10/21/18 08:10 Consult to Physician [CONS] Routine OT Evaluation and Treatment [CONS] Routine PT Evaluation and Treatment [CONS] Routine - Patient Instructions Diet: Usual Diet as Tolerated Activity: Apply Ice, As Tolerated, Elevate Extremity Activity, Other: No forceful use of the surgical limb. Driving: Do Not Drive Showering/Bathing: May Shower Wound/Incision Care: Keep Operative Site/Wound Site Clean and Dry, Do NOT Change Dressing Notify Provider of: Fever, Increased Pain, Swelling and Redness, Drainage, Nausea and/or Vomiting Other/Special Instructions: Please get up and moving around EVERY HOUR while awake. This helps to prevent blood clots. Take a short walk in your home every hour while awake. Please take 325mg Aspirin daily. The aspirin is being used for blood clot prevention and not for pain management so please do not miss a dose of the medication. You could use a medication like Zantac or Pepcid and a medication like Prilosec or Nexium to protect your stomach while you are using the aspirin. At home, please complete the exercises that you learned during the Hospital stay. Schedule for physical or occupational therapy. Use the immoiblizer as directed. Do not use the surgical limb for forceful activity. Use the pain medication as needed. The medication may cause drowsiness and constipation. Contact your primary care provider for instructions if you are constipated. You may use a stool softener like docusate sodium or Colace 100mg twice daily and/or a laxative like Miralax daily for constipation. Increase your water and fiber intake while you are using the pain medication. Discontinue use of the pain medication as soon as able. Please do not use other medications that may cause drowsiness (other pain medications, anxiety pills, cold medications, sleeping pills, etc) while using the prescription pain medication. Do not use alcohol while using the pain medication. Wear the MONICA hose during the day and you may remove these at night. Elevate the limb to decrease swelling. Place ice to the area often. Place a towel between your skin and the blue pad. Use the incentive spirometer often. Take deep breaths throughout the day. Please keep the dressing in place until follow-up. Notify the Clinic if the dressing becomes saturated. Increase your protein intake while you are healing. If you have diabetes, please closely monitor your blood sugars and notify your primary care provider with abnormal values. Elevated blood sugars increases the risk of infection. Call the Clinic with questions or concerns - [phone]. - Discharge Plan *PRESCRIPTION DRUG MONITORING PROGRAM REVIEWED*: No *COPY OF PRESCRIPTION DRUG MONITORING REPORT IN PATIENT CORDELIA: No Prescriptions/Med Rec: Acetaminophen/oxyCODONE [Percocet 325-5 MG] 1 - 2 tab PO Q6H PRN #60 tablet PRN Reason: Pain Aspirin [Ecotrin] 325 mg PO DAILY #40 tab.ec Cyclobenzaprine [Flexeril] 10 mg PO TID PRN #40 tablet PRN Reason: Spasms Home Medications: Home Meds Furosemide [Lasix] 20 mg PO DAILY 04/23/14 [History] Tamsulosin [Flomax] 0.4 mg PO DAILY 04/23/14 [History] Metoprolol Succinate [Toprol XL] 200 mg PO DAILY 12/25/14 [History] Ubidecarenone [Coq-10] 200 mg PO DAILY 10/11/16 [History] Allopurinol [Zyloprim] 100 mg PO DAILY 12/19/17 [History] Cholecalciferol (Vitamin D3) [Vitamin D3] 5,000 unit PO DAILY 12/19/17 [History] Omeprazole 20 mg PO DAILY 12/19/17 [History] Calcium Carbonate [Calcium] 1,200 mg PO DAILY 10/20/18 [History] Pravastatin [Pravachol] 40 mg PO DAILY 10/20/18 [History] Acetaminophen/oxyCODONE [Percocet 325-5 MG] 1 - 2 tab PO Q6H PRN #60 tablet [Rx] Aspirin [Ecotrin] 325 mg PO DAILY #40 tab.ec 10/21/18 [Rx] Bisacodyl [Dulcolax] 5 mg PO DAILY PRN tablet 10/21/18 [Rx] Cyclobenzaprine [Flexeril] 10 mg PO TID PRN #40 tablet 10/21/18 [Rx] Docusate Sodium [Colace] 100 mg PO BID cap 10/21/18 [Rx] Magnesium Hydroxide [Milk of Magnesia] 30 ml PO BID PRN cup 10/21/18 [Rx] [place]+D Sufficiency. 4 tab PO DAILY 10/21/18 [History] Sennosides [Senna] 8.6 mg PO BID PRN tablet 10/21/18 [Rx] Referrals: Farhana Robison PA-C [Physician Air Compressor Operator] - - Discharge Summary/Plan Comment DC Time >30 min.: No - Patient Data Vitals - Most Recent: Last Vital Signs Temp 97.2 F 10/21/18 14:15 Pulse 78 10/22/18 03:33 Resp 14 10/22/18 03:33 BP 105/75 10/22/18 03:33 Pulse Ox 95 10/22/18 03:33 Weight - Most Recent: 186 lb I&O - Last 24 hours: Intake & Output 10/21/18 10/22/18 10/22/18 22:59 06:59 14:59 Intake Total 370 700 Output Total 550 Balance 370 150 Lab Results - Last 24 hrs: Laboratory Results - last 24 hr 10/22/18 10/22/18 Range/Units 05:35 05:35 WBC 8.47 (4.23-9.07) K/mm3 RBC 4.09 L (4.63-6.08) M/mm3 Hgb 13.1 L (13.7-17.5) gm/L Hct 38.5 L (40.1-51.0) % MCV 94.1 H (79.0-92.2) fl MCH 32.0 (25.7-32.2) pg MCHC 34.0 (32.2-35.5) g/dl RDW Std Deviation 42.9 (35.1-43.9) fL Plt Count 174 (163-337) K/mm3 MPV 10.0 (9.4-12.3) fl Sodium 136 (136-145) mEq/L Potassium 4.5 (3.5-5.1) mEq/L Chloride 103 (98-107) mEq/L Carbon Dioxide 25 (21-32) mEq/L Anion Gap 12.5 (5-15) BUN 15 (7-18) mg/dL Creatinine 1.2 (0.7-1.3) mg/dL Est Cr Clr Drug Dosing 55.64 mL/min Estimated GFR (MDRD) 60 (>60) mL/min BUN/Creatinine Ratio 12.5 L (14-18) Glucose 126 H (83-115) mg/dL Calcium 8.5 (8.5-10.1) mg/dL Total Bilirubin 0.5 (0.2-1.0) mg/dL AST 16 (15-37) U/L ALT 26 (16-63) U/L Alkaline Phosphatase 83 (46-116) U/L Total Protein 5.8 L (6.4-8.2) g/dl Albumin 2.7 L (3.4-5.0) g/dl Globulin 3.1 gm/dL Albumin/Globulin Ratio 0.9 L (1-2) Med Orders - Current: Current Medications Allopurinol (Zyloprim) 100 mg PO DAILY [facility] Aspirin (Ecotrin) 325 mg PO DAILY [facility] Bisacodyl (Dulcolax) 5 mg PO DAILY PRN PRN Reason: Constipation Calcium Carbonate/Glycine (Calcium Carbonate) 600 mg PO BID [facility] Last Admin: 10/21/18 20:49 Dose: 600 mg Cholecalciferol (Vitamin D3) 5,000 unit PO DAILY [facility] Cyclobenzaprine HCl (Flexeril) 10 mg PO TID PRN PRN Reason: Spasms Docusate Sodium (Colace) 100 mg PO BID [facility] Last Admin: 10/21/18 20:42 Dose: 100 mg Furosemide (Lasix) 20 mg PO DAILY [facility] Cefazolin Sodium/Dextrose 2 gm (/ Premix) 50 mls @ 100 mls/hr IV Q8H [facility] Stop: 10/22/18 10:59 Last Admin: 10/22/18 03:40 Dose: 100 mls/hr Influenza Virus Vaccine (Fluzone High-Dose 2017- Syringe) 180 mcg IM .ONCE ONE Stop: 10/22/18 12:01 Ketorolac Tromethamine (Toradol) 15 mg IVPUSH Q6H PRN PRN Reason: Pain Last Admin: 10/22/18 06:19 Dose: 15 mg Magnesium Hydroxide (Milk Of Magnesia) 30 ml PO BID PRN PRN Reason: Constipation Metoprolol Succinate (Toprol Xl) 200 mg PO DAILY [facility] Morphine Sulfate (Morphine) 2 mg IVPUSH Q2H PRN PRN Reason: Breakthrough Pain Naloxone HCl (Narcan) 0.1 mg IVPUSH Q5M PRN PRN Reason: Oversedation Ondansetron HCl (Zofran) 4 mg IVPUSH Q6H PRN PRN Reason: Nausea/Vomiting Last Admin: 10/21/18 15:31 Dose: 4 mg Oxycodone/Acetaminophen (Percocet 325-5 Mg) 1 - 2 tab PO Q4H PRN PRN Reason: Pain Last Admin: 10/21/18 20:42 Dose: 2 tab Pantoprazole Sodium (Protonix) 40 mg PO DAILY [facility] Senna (Senna) 8.6 mg PO BID PRN PRN Reason: Constipation Simvastatin (Zocor) 20 mg PO DAILY [facility] Tamsulosin HCl (Flomax) 0.4 mg PO DAILY [facility] Discontinued Medications Acetaminophen (Tylenol) 975 mg PO ONETIME [facility] Stop: 10/21/18 14:00 Last Admin: 10/21/18 09:44 Dose: 975 mg Bupivacaine HCl (Marcaine 0.25%) Confirm Administered Dose 30 ml .ROUTE .STK- MED ONE Stop: 10/21/18 10:28 Cefazolin Sodium (Ancef) Confirm Administered Dose 2 gm .ROUTE .STK-MED ONE Stop: 10/21/18 09:56 Last Admin: 10/21/18 12:47 Dose: 2 gm Cefazolin Sodium (Ancef) Confirm Administered Dose 2 gm .ROUTE .STK-MED ONE Stop: 10/21/18 10:28 Dexamethasone (Dexamethasone) Confirm Administered Dose 8 mg .ROUTE .STK-MED ONE Stop: 10/21/18 11:47 Diphenhydramine HCl (Benadryl) 25 mg IVPUSH Q6H PRN PRN Reason: Pruritis Stop: 10/21/18 16:00 Ephedrine Sulfate (Ephedrine In Ns) Confirm Administered Dose 50 mg .ROUTE .STK- MED ONE Stop: 10/21/18 12:39 Epinephrine HCl (Adrenalin) Confirm Administered Dose 1 mg .ROUTE .STK-MED ONE Stop: 10/21/18 07:18 Famotidine (Pepcid) 20 mg PO Q12H [facility] Fentanyl (Sublimaze) Confirm Administered Dose 250 mcg .ROUTE .STK-MED ONE Stop: 10/21/18 09:57 Fentanyl (Sublimaze) 50 mcg IVPUSH Q5M PRN PRN Reason: Pain Stop: 10/21/18 16:00 Lactated Ringer's (Ringers, Lactated) 1,000 mls @ 125 mls/hr IV ASDIRECTED [facility] Stop: 10/21/18 23:00 Last Admin: 10/21/18 09:10 Dose: 125 mls/hr Lidocaine HCl (Xylocaine-Mpf 1%) Confirm Administered Dose 4 mls @ as directed .ROUTE .STK-MED ONE Stop: 10/21/18 07:18 Lidocaine HCl (Xylocaine-Mpf 1%) Confirm Administered Dose 4 mls @ as directed .ROUTE .STK-MED ONE Stop: 10/21/18 09:56 Lactated Ringer's (Ringers, Lactated) Confirm Administered Dose 1,000 mls @ as directed .ROUTE .STK-MED ONE Stop: 10/21/18 09:56 Lidocaine HCl (Xylocaine-Mpf 1%) Confirm Administered Dose 2 mls @ as directed .ROUTE .STK-MED ONE Stop: 10/21/18 10:08 Lactated Ringer's (Ringers, Lactated) Confirm Administered Dose 1,000 mls @ as directed .ROUTE .STK-MED ONE Stop: 10/21/18 12:45 Lactated Ringer's (Ringers, Lactated) Confirm Administered Dose 1,000 mls @ as directed .ROUTE .STK-MED ONE Stop: 10/21/18 12:45 Influenza Virus Vaccine (Pharmacy To Dose - Influenza Vaccine) 1 each IM ONETIME ONE Stop: 10/21/18 14:51 Iodine (Iodine 2% Mild Tincture) Confirm Administered Dose 30 ml .ROUTE .STK- MED ONE Stop: 10/21/18 10:28 Last Admin: 10/21/18 12:45 Dose: 18 ml Ketorolac Tromethamine (Toradol) Confirm Administered Dose 30 mg .ROUTE .STK- MED ONE Stop: 10/21/18 11:47 Lidocaine/Sodium Bicarbonate (Buffered Lidocaine 1% In Ns 8.4%) 0.25 ml IDERM ONETIME PRN PRN Reason: Prior to IV Start Stop: 10/21/18 18:00 Last Admin: 10/21/18 09:10 Dose: 0.25 ml Midazolam HCl (Versed 1 Mg/Ml) Confirm Administered Dose 2 mg .ROUTE .STK-MED ONE Stop: 10/21/18 09:57 Non-Formulary Medication (Ubidecarenone) 200 mg PO DAILY [facility] Ondansetron HCl (Zofran) Confirm Administered Dose 4 mg .ROUTE .STK-MED ONE Stop: 10/21/18 09:56 Ondansetron HCl (Zofran) 4 mg IVPUSH ONETIME PRN PRN Reason: Nausea/Vomiting Oxycodone HCl (Oxycontin) 10 mg PO ONETIME [facility] Stop: 10/21/18 14:00 Last Admin: 10/21/18 09:45 Dose: 10 mg Phenylephrine HCl (Phenylephrine In Ns 100 Mcg/Ml) Confirm Administered Dose 2 mg .ROUTE .STK-MED ONE Stop: 10/21/18 12:40 Pregabalin (Lyrica) 50 mg PO ONETIME [facility] Stop: 10/21/18 14:00 Last Admin: 10/21/18 09:45 Dose: 50 mg Propofol (Diprivan 20 Ml) Confirm Administered Dose 400 mg .ROUTE .STK-MED ONE Stop: 10/21/18 09:57 Ropivacaine (Naropin 0.5%) Confirm Administered Dose 30 ml .ROUTE .STK-MED ONE Stop: 10/21/18 07:18 Sodium Chloride (Saline Flush) 10 ml FLUSH ASDIRECTED PRN PRN Reason: Keep Vein Open Stop: 10/21/18 18:00 Tranexamic Acid (Cyklokapron) Confirm Administered Dose 1,000 mg .ROUTE .STK- MED ONE Stop: 10/21/18 10:28 Last Admin: 10/21/18 12:53 Dose: 1,000 mg Vancomycin HCl (Vancomycin) Confirm Administered Dose 1 gm .ROUTE .[facility]-MED ONE Stop: 10/21/18 10:28 Last Admin: 10/21/18 12:52 Dose: 1 gm
[2018-10-22] MEDS: Calcium Carbonate 600 MG Tab PO SCH (08:42)
[2018-10-22] MEDS: Docusate Sodium 100 MG Cap PO SCH (08:43)
[2018-10-22] MEDS ORDERED: Sodium Chloride 0.9% 1,000 ML ONE (08:49)
--- NOTE | 2018-10-22 08:50 | PCM48HPAN ---
Post Anesthesia Note - EVALUATION WITHIN 48HRS OF ANESTHETIC Vital Signs in Normal Range: Yes Patient Participated in Evaluation: Yes Respiratory Function Stable: Yes Airway Patent: Yes Cardiovascular Function Stable: Yes Hydration Status Stable: Yes Pain Control Satisfactory: Yes Nausea and Vomiting Control Satisfactory: Yes Mental Status Recovered: Yes Pulse Rate: 78 Resp Rate: 14 Temperature: 36.6 C Blood Pressure: 105/75 - COMMENTS/OBSERVATIONS Free Text/Narrative:: no anesthesia complications noted
[2018-10-22] MEDS ORDERED: Aspirin 325 MG Tab.EC PO SCH (09:00)
[2018-10-22] MEDS ORDERED: Non-Formulary Medication 1 Each (Ubidecarenone 200 MG) PO SCH (09:00)
[2018-10-22] MEDS ORDERED: Allopurinol 100 MG Tab PO SCH (09:00)
[2018-10-22] MEDS ORDERED: Cholecalciferol (Vitamin D3) 5,000 UNIT Tab PO SCH (09:00)
[2018-10-22] MEDS ORDERED: Sodium Chloride 0.9% 500 ML IV ONE (09:00)
[2018-10-22] MEDS ORDERED: Tamsulosin 0.4 MG Cap.ER PO SCH (09:00)
[2018-10-22] MEDS ORDERED: Metoprolol Succinate 50 MG Tab.ER PO SCH (09:00)
[2018-10-22] MEDS ORDERED: Simvastatin 20 MG Tab PO SCH (09:00)
[2018-10-22] MEDS ORDERED: Pantoprazole 40 MG Tab.CR PO SCH (09:00)
[2018-10-22] MEDS ORDERED: Furosemide 20 MG Tab PO SCH (09:00)
[2018-10-22] MEDS: Acetaminophen/oxyCODONE 325-5 MG Tab PO PRN (09:53)
[2018-10-22 11:51] VITALS: BP 106/55
--- NOTE | 2018-10-24 11:08 | PCM.OPNOTE ---
- General Post-Op/Procedure Note Date of Surgery/Procedure: 10/21/18 Operative Procedure(s): left reverse total shoulder arthroplasty Pre Op Diagnosis: left shoulder rotator cuff tear arthropathy Post-Op Diagnosis: Same Anesthesia Technique: General ET Tube, Regional Block Primary Surgeon: Joe Urbina Anesthesia Provider: Krystle Hernandez Mash Tub Cooker: Farhana Robison Mash Tub Cooker: Solange Melendez EBL in mLs: 225 Complications: None Condition: Good
--- NOTE | 2018-10-24 11:41 | OR ---
DATE OF OPERATION: 10/21/2018 SURGEON: Joe Urbina MD OPERATION PERFORMED: Left reverse total shoulder arthroplasty. PREOPERATIVE DIAGNOSIS: Left shoulder rotator cuff tear and arthropathy. POSTOPERATIVE DIAGNOSIS: Left shoulder rotator cuff tear and arthropathy. ANESTHESIA: General endotracheal intubation with regional interscalene block. ANESTHESIA PROVIDER: Jenni De Jesus. ASSISTANTS: Farhana Robison PA-C and Solange Melendez LPN. ESTIMATED BLOOD LOSS: 225 mL. COMPLICATIONS: None. CONDITION: Stable. DESCRIPTION OF PROCEDURE: The patient was identified in the preoperative holding area. Proper site was marked and identified by the surgeon. The patient was taken back to the operating theater where after adequate anesthesia, the patient's left upper extremity was sterilely prepped and draped in the usual sterile fashion. OR time-out was performed. The patient received 2 g IV Ancef. At this time, a standard deltopectoral incision was made. This was taken down to the cephalic vein. The cephalic vein was identified as well as the deltopectoral interval. The cephalic vein was then retracted laterally and the deltopectoral interval was divided. At this time, this was taken down to the clavipectoral fascia. The clavipectoral fascia was incised. The conjoined tendon was retracted medially and the deltoid was retracted laterally. At this time, the anterior humeral circumflex vessels were identified and 0 Vicryl stick tie was used to ligate the vessels. Biceps tendon was identified and a subpectoral tenodesis was performed and then resection of the biceps tendon was done all the way to the level of the glenoid. Peel down of the subscapularis tendon was then done and the humeral head was exposed. The patient was noted to have significant rotator cuff tear. At this time, neck cut was then completed and found to be in adequate position. Attention was turned to the glenoid. Posterior and anterior retractors were placed and circumferential removal of the labrum as well as any soft tissue was then done from the glenoid and was found to have adequate exposure. Guide pin was then placed in a center-center position, and a central reamer was used for the glenoid baseplate. A small peripheral reamer was then used for the glenoid baseplate and was found to have adequate coverage. The small glenoid baseplate was then impacted into place and the central lag screw was placed. Inferior and superior locking screws were then placed and found to have adequate purchase. Attention was turned back to the humerus. Starting with 5 broach, I was able to broach up to a size 7, which was found to be rotationally and vertically stable. The central reamer for the humerus was then placed and was reamed and found to have adequate coverage. Trial implants were then placed after the 36, +4 glenosphere was impacted into place. The +3 was found to be a little bit loose and +6 was found to have good tension on the deltoid as well as the conjoined tendon without over-tensioning and good stability throughout range of motion. C-arm fluoroscopy showed it to be in adequate position. At this time, the size 7 humeral stem was constructed on the back table with 135-degree humeral component and a +6 liner, which was impacted into place. This was all then impacted into humerus and then the shoulder was reduced. 1 L dilute Betadine solution was irrigated through the shoulder along with 3 L pulse lavage irrigation with Ancef. Topical tranexamic acid as well as vancomycin powder were placed. The #2 FiberWire was used for tagging the deltopectoral interval, 2-0 Vicryl was used subcutaneously, and Prineo was used for the skin. The patient was sent to PACU in stable condition. BEENA /[id number]
== END 2018-10-22 11:20 | disposition home or self-care (01) | DRG 483 ==
LOC: JD.MS 08:13
PROVIDERS: ADMIT Orthopaedic Surgery; ATTEND Orthopaedic Surgery
PROC: 0RRK00Z Replacement of Left Shoulder Joint with Reverse Ball and Socket Synthetic Substitute, Open Approach (ICD-10-PCS; principal; 2018-10-21)
PROC: 3E0T3BZ Introduction of Anesthetic Agent into Peripheral Nerves and Plexi, Percutaneous Approach (ICD-10-PCS; 2018-10-21)
PROC: 3E02340 Introduction of Influenza Vaccine into Muscle, Percutaneous Approach (ICD-10-PCS; 2018-10-22)
DX: M19.012 Primary osteoarthritis, left shoulder (principal); M75.102 Unspecified rotator cuff tear or rupture of left shoulder, not specified as traumatic; I25.10 Atherosclerotic heart disease of native coronary artery without angina pectoris; I10 Essential (primary) hypertension; M85.80 Other specified disorders of bone density and structure, unspecified site; G89.18 Other acute postprocedural pain; K21.0 Gastro-esophageal reflux disease with esophagitis; N40.0 Benign prostatic hyperplasia without lower urinary tract symptoms; E55.9 Vitamin D deficiency, unspecified; M54.42 Lumbago with sciatica, left side; G89.29 Other chronic pain; F41.9 Anxiety disorder, unspecified; R91.8 Other nonspecific abnormal finding of lung field; H54.7 Unspecified visual loss; Z88.2 Allergy status to sulfonamides; Z79.899 Other long term (current) drug therapy; Z98.1 Arthrodesis status; Z95.1 Presence of aortocoronary bypass graft; Z95.5 Presence of coronary angioplasty implant and graft; Z79.82 Long term (current) use of aspirin; Z87.891 Personal history of nicotine dependence; Z23 Encounter for immunization
CPT/HCPCS: 01638; 36415; 64415; 73020-26-LT; 73020-LT; 76000; 76000-26; 80053; 85027; 90662; 97110-GP; 97116-GP; 97161-GP; 97165-GO; 97535-GO; A9270-GY; C1713; C1776; G0008; J0171; J0690; J1100; J1885; J2001; J2250; J2370; J2405; J2704; J2795; J3010; J3370; J3490; J7040; J7050; J7120

== ENCOUNTER 2018-10-29 17:13 | Day surgery (SDC) | payer MEDICARE, OTHER ==
[~2018-10-29 17:13] MED LIST changes: -Acetaminophen 325 MG Tab PO SCH; -EPINEPHrine 1 MG/ML SDV ONE; -Lactated Ringers 1,000 ML IV SCH; -Lidocaine 1% 4 ML ONE; +Lidocaine 1% PF 2 ML SDV ONE; -Lidocaine 1%/Sod Bicarbonate in NS 8.4% 1 ML Syringe IDERM PRN; +Ondansetron 4 MG/2 ML SDV ONE; -Pregabalin 25 MG Cap PO SCH; +Propofol 200 MG/20 ML SDV ONE; -Ropivacaine 0.5% 5 MG/ML 30 ML SDV ONE; -Sodium Chloride 0.9% 10 ML Syringe FLUSH PRN; +Succinylcholine/Normal Saline 100 MG/5 ML Syringe ONE; +fentaNYL 250 MCG/5 ML SDV ONE; -oxyCODONE ER 10 MG TAB.ER PO SCH
--- NOTE | 2018-10-29 17:42 | PCM.PREANE ---
Preanesthetic Assessment - Procedure Proposed Procedure: closed vs open reduction left shoulder - Anesthesia/Transfusion/Family Hx Anesthesia History: Prior Anesthesia Without Reaction Transfusion History: Prior Transfusion Without Reaction Intubation History: Unknown - Review of Systems General: No Symptoms Pulmonary: No Symptoms Cardiovascular: No Symptoms, Other (2012 angioplasty 1997 cabg times 3 ) Gastrointestinal: No Symptoms, Other (gerd) Neurological: Dizziness Other: Reports: Sinus Problem (drainage) - Physical Assessment NPO Status Date: 10/29/18 NPO Status Time: 11:30 O2 Sat by Pulse Oximetry: 97 Respiratory Rate: 18 Vital Signs: Last Vital Signs Temp 98.6 F 10/29/18 17:30 Pulse 97 10/29/18 17:30 Resp 18 10/29/18 17:30 BP 136/95 H 10/29/18 17:30 Pulse Ox 97 10/29/18 17:30 Height: 5 ft 9 in Weight: 79.832 kg ASA Class: 3E Mental Status: Alert & Oriented x3 Airway Class: Mallampati = 2 Dentition: Reports: Normal Dentition, Broken Tooth/Teeth, Missing Tooth/Teeth Thyro-Mental Finger Breadths: 3 Mouth Opening Finger Breadths: 3 ROM/Head Extension: Full Lungs: Clear to Auscultation, Normal Respiratory Effort Cardiovascular: Regular Rate, Regular Rhythm - Allergies Allergies/Adverse Reactions: Allergies Allergy/AdvReac Type Severity Reaction Status Date / Time Sulfa (Sulfonamide Allergy Hives Verified 10/20/18 18:51 Antibiotics) - Blood Blood Available: No - Anesthesia Plan Beta Yovani: Metoprolol Med Last Dose Date: 10/29/18 Med Last Dose Time: 07:00 - Acknowledgements Anesthesia Type Planned: General Anesthesia Pt an Appropriate Candidate for the Planned Anesthesia: Yes Alternatives and Risks of Anesthesia Discussed w Pt/Guardian: Yes Pt/Guardian Understands and Agrees with Anesthesia Plan: Yes PreAnesthesia Questionnaire HEENT History: Reports: Impaired Vision Cardiovascular History: Reports: CAD, Hypertension, PTCA Other Cardiovascular History: Stent placed 2012 Respiratory History: Reports: Other (See Below) Other Respiratory History: pulmonary nodules Gastrointestinal History: Reports: GERD, Other (See Below) Other Gastrointestinal History: esophagitis Genitourinary History: Reports: BPH, Other (See Below) Other Genitourinary History: prostatitis, bacteremia [facility] [facility] History: Reports: None Musculoskeletal History: Reports: Osteoarthritis Other Musculoskeletal History: osteoarthritis spine with myelopathy, synovial cyst of spinal spine, rotator cuff disorder, bursitis Neurological History: Reports: Other (See Below) Other Neuro History: dizziness, headache, synovial cyst of lumbar spine Psychiatric History: Reports: None Endocrine/Metabolic History: Reports: None, Osteopenia, Vitamin D Deficiency Hematologic History: Reports: None, Other (See Below) Other Hematologic History: bacteremia Immunologic History: Reports: None Oncologic (Cancer) History: Reports: None Dermatologic History: Reports: None - Infectious Disease History Infectious Disease History: Reports: Chicken Pox, Measles - Past Surgical History Head Surgeries/Procedures: Reports: None HEENT Surgical History: Reports: Eye Surgery, Other (See Below) Other HEENT Surgeries/Procedures: keratomy to right eye Cardiovascular Surgical History: Reports: Coronary Artery Bypass, Other (See Below) Other Cardiovascular Surgeries/Procedures: PTCA with stent Respiratory Surgical History: Reports: None GI Surgical History: Reports: Colonoscopy Female Surgical History: Reports: None Male Surgical History: Reports: None Endocrine Surgical History: Reports: None Neurological Surgical History: Reports: None, Other (See Below) Other Neurological Surgeries/Procedures: multiple back surgeries Musculoskeletal Surgical History: Reports: Shoulder Surgery, Other (See Below) Other Musculoskeletal Surgeries/Procedures:: ankle surgery Dermatological Surgical History: Reports: None - SUBSTANCE USE Smoking Status *Q: Former Smoker Tobacco Use Within Last Twelve Months: No Second Hand Smoke Exposure: No Days Per Week of Alcohol Use: 6 Number of Drinks Per Day: 3 Total Drinks Per Week: 18 Date of Last Drink: 10/28/18 Recreational Drug Use History: No - HOME MEDS Home Medications: Home Meds Furosemide [Lasix] 20 mg PO DAILY 04/23/14 [History] Tamsulosin [Flomax] 0.4 mg PO DAILY 04/23/14 [History] Metoprolol Succinate [Toprol XL] 200 mg PO DAILY 12/25/14 [History] Ubidecarenone [Coq-10] 200 mg PO DAILY 10/11/16 [History] Allopurinol [Zyloprim] 100 mg PO DAILY 12/19/17 [History] Cholecalciferol (Vitamin D3) [Vitamin D3] 5,000 unit PO DAILY 12/19/17 [History] Omeprazole 20 mg PO DAILY 12/19/17 [History] Calcium Carbonate [Calcium] 1,200 mg PO DAILY 10/20/18 [History] Pravastatin [Pravachol] 40 mg PO DAILY 10/20/18 [History] Acetaminophen/oxyCODONE [Percocet 325-5 MG] 1 - 2 tab PO Q6H PRN #60 tablet [Rx] Aspirin [Ecotrin] 325 mg PO DAILY #40 tab.ec 10/21/18 [Rx] Bisacodyl [Dulcolax] 5 mg PO DAILY PRN tablet 10/21/18 [Rx] Cyclobenzaprine [Flexeril] 10 mg PO TID PRN #40 tablet 10/21/18 [Rx] Docusate Sodium [Colace] 100 mg PO BID cap 10/21/18 [Rx] Magnesium Hydroxide [Milk of Magnesia] 30 ml PO BID PRN cup 10/21/18 [Rx] [place]+D Sufficiency. 4 tab PO DAILY 10/21/18 [History] Sennosides [Senna] 8.6 mg PO BID PRN tablet 10/21/18 [Rx]
[2018-10-29] MEDS ORDERED: ePHEDrine/Normal Saline 25 MG/5 ML Syringe ONE (18:13)
[2018-10-29] MEDS ORDERED: Ondansetron 4 MG/2 ML SDV IVPUSH PRN (18:30)
[2018-10-29] MEDS ORDERED: fentaNYL 100 MCG/2 ML SDV IVPUSH PRN (18:30)
--- NOTE | 2018-10-29 18:35 | CR ---
Left shoulder: 4 fluoroscopic spot views were obtained of the left shoulder utilizing C-arm device. Comparison: Previous operative study 10/21/18 of the left shoulder. 4 fluoroscopic spot views were obtained of the left shoulder which shows a dislocation of the left shoulder prosthesis. Final 2 films shows relocation of the shoulder prosthesis with normal alignment. Fluoroscopy time given as 18.2 seconds. Impression: 1. Dislocation of left shoulder prosthesis with subsequent relocation. Diagnostic code #2
[2018-10-29 19:06] VITALS: BP 115/73
--- NOTE | 2018-11-13 14:54 | OR ---
DATE OF OPERATION: 10/29/2018 SURGEON: Joe Urbina MD PREOPERATIVE DIAGNOSIS: Dislocated left reverse total shoulder arthroplasty. POSTOPERATIVE DIAGNOSIS: Dislocated left reverse total shoulder arthroplasty. ANESTHESIA TECHNIQUE: General conscious sedation. OPERATIVE PROCEDURE: Reduction of left reverse total shoulder arthroplasty dislocation. WATERPROOFING MACHINE OPERATOR: Farhana Robison PA-C. ESTIMATED BLOOD LOSS: Not applicable. COMPLICATIONS: None. CONDITION: Stable. DESCRIPTION OF PROCEDURE: The patient was identified in the preop holding area. Proper site was marked and identified by the surgeon. The patient was taken back to the operating theater, where after adequate anesthesia, the patient's left reverse total shoulder arthroplasty was relocated. C-arm fluoroscopy was utilized at this time as well, showing it to be well concentrically reduced. I did at this time pull on shoulder as well as bring it into an abducted and externally rotated position, it was stable throughout range of motion with no signs of again instability at this point. At this point, the patient was placed back in a pillow sling and sent to PACU in stable condition. OPERATION PERFORMED: ANESTHESIA: MMODAL /[id number]
== END 2018-10-29 19:31 | disposition home or self-care (01) ==
LOC: JD.ED 17:13 → JD.SDS 17:40
PROVIDERS: ATTEND Orthopaedic Surgery
DX: T84.028A Dislocation of other internal joint prosthesis, initial encounter (principal); M19.012 Primary osteoarthritis, left shoulder; M96.0 Pseudarthrosis after fusion or arthrodesis; I10 Essential (primary) hypertension; K21.9 Gastro-esophageal reflux disease without esophagitis; Z87.891 Personal history of nicotine dependence; Z79.82 Long term (current) use of aspirin; Z79.899 Other long term (current) drug therapy; Z96.612 Presence of left artificial shoulder joint; Z95.1 Presence of aortocoronary bypass graft
CPT/HCPCS: 23655; 76000; 99283; J0330; J2001; J2405; J2704; J3010; J7050; 01638

== ENCOUNTER 2021-08-16 08:02 | Emergency (ER) | payer MEDICARE, OTHER ==
--- NOTE | 2021-08-16 08:32 | EDM.PDOC ---
ED HPI GENERAL MEDICAL PROBLEM - General Chief Complaint: Respiratory Problem Stated Complaint: COUGH Time Seen by Provider: 08/16/21 08:27 Source of Information: Reports: Patient History Limitations: Reports: No Limitations - History of Present Illness INITIAL COMMENTS - FREE TEXT/NARRATIVE: 75-year-old male presents to the ED with paroxysmal cough gradually worsening over the last week. He is bringing up some yellow-colored sputum. No hemoptysis. He used to smoke cigarettes and then chewed tobacco for about 10 years. Last use of nicotine was 10 years ago. History of coronary disease requiring bypass surgery i.e. triple bypass carried out 1988. Coughs to the point of getting dizzy but no syncope. No associated fever chills. He is not vaccinated against COVID-19 illness. Onset: Gradual Onset Date: 08/09/21 Duration: Day(s):, Getting Worse Location: Reports: Chest (Paroxysmal intermittent cough producing yellow sputum.) Quality: Reports: Other (Paroxysmal) Severity: Moderate (productive cough) Improves with: Reports: None Worsens with: Reports: Other (Exposure to cold air makes him cough worse.) Context: Denies: Activity, Exercise, Lifting, Sick Contact, Trauma, Other Associated Symptoms: Reports: Cough, cough w sputum (Yellow sputum). 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: Reports: Other (see below) (None.) Headache Pain Score (Numeric/FACES): 5 - Related Data Allergies Allergy/AdvReac Type Severity Reaction Status Date / Time Sulfa (Sulfonamide Allergy Hives Verified 10/20/18 18:51 Antibiotics) Home Meds: Home Meds Furosemide [Lasix] 20 mg PO DAILY 04/23/14 [History] Tamsulosin [Flomax] 0.4 mg PO DAILY 04/23/14 [History] Metoprolol Succinate [Toprol XL] 200 mg PO DAILY 12/25/14 [History] Ubidecarenone [Coq-10] 200 mg PO DAILY 10/11/16 [History] Cholecalciferol (Vitamin D3) [Vitamin D3] 5,000 unit PO DAILY 12/19/17 [History] Omeprazole 20 mg PO DAILY 12/19/17 [History] allopurinoL [Zyloprim] 100 mg PO DAILY 12/19/17 [History] Calcium Carbonate [Calcium] 1,200 mg PO DAILY 10/20/18 [History] Pravastatin [Pravachol] 40 mg PO DAILY 10/20/18 [History] Acetaminophen/oxyCODONE [Percocet 325-5 MG] 1 - 2 tab PO Q6H PRN #60 tablet 10/21/18 [Rx] Aspirin [Ecotrin EC] 325 mg PO DAILY #40 tab.ec 10/21/18 [Rx] Cyclobenzaprine [Flexeril] 10 mg PO TID PRN #40 tablet 10/21/18 [Rx] Docusate Sodium [Colace] 100 mg PO BID cap 10/21/18 [Rx] Magnesium Hydroxide [Milk of Magnesia] 30 ml PO BID PRN cup 10/21/18 [Rx] Riviera+D Sufficiency. 4 tab PO DAILY 10/21/18 [History] Sennosides [Senna] 8.6 mg PO BID PRN tablet 10/21/18 [Rx] bisacodyL [Dulcolax] 5 mg PO DAILY PRN tablet 10/21/18 [Rx] Doxycycline [Vibra-Tabs] 100 mg PO Q12HR #20 tab 08/16/21 [Rx] Hydrocodone/Chlorphen P-Stirex [Hydrocodone-Chlorphen ER Susp] 5 ml PO Q12H PRN #60 ml 08/16/21 [Rx] Past Medical History HEENT History: Reports: Impaired Vision Cardiovascular History: Reports: Bypass (Triple bypass carried out 1988), CAD, Hypertension, PTCA Other Cardiovascular History: Stent placed 2012 Respiratory History: Reports: Other (See Below) Other Respiratory History: pulmonary nodules Gastrointestinal History: Reports: GERD, Other (See Below) Other Gastrointestinal History: esophagitis Genitourinary History: Reports: BPH, Other (See Below) Other Genitourinary History: prostatitis, bacteremia SHOE PULLER History: Reports: None Musculoskeletal History: Reports: Osteoarthritis Other Musculoskeletal History: osteoarthritis spine with myelopathy, synovial cyst of spinal spine, rotator cuff disorder, bursitis Neurological History: Reports: Other (See Below) Other Neuro History: dizziness, headache, synovial cyst of lumbar spine Psychiatric History: Reports: None Endocrine/Metabolic History: Reports: None, Osteopenia, Vitamin D Deficiency Hematologic History: Reports: None, Other (See Below) Other Hematologic History: bacteremia Immunologic History: Reports: None Oncologic (Cancer) History: Reports: None Dermatologic History: Reports: None - Infectious Disease History Infectious Disease History: Reports: Chicken Pox, Measles - Past Surgical History Head Surgeries/Procedures: Reports: None HEENT Surgical History: Reports: Eye Surgery, Other (See Below) Other HEENT Surgeries/Procedures: keratomy to right eye Cardiovascular Surgical History: Reports: Coronary Artery Bypass, Other (See Below) Other Cardiovascular Surgeries/Procedures: PTCA with stent Respiratory Surgical History: Reports: None GI Surgical History: Reports: Colonoscopy Male Surgical History: Reports: None Endocrine Surgical History: Reports: None Neurological Surgical History: Reports: None, Other (See Below) Other Neurological Surgeries/Procedures: multiple back surgeries Musculoskeletal Surgical History: Reports: Shoulder Surgery, Other (See Below) Other Musculoskeletal Surgeries/Procedures:: ankle surgery Dermatological Surgical History: Reports: None Social & Family History - Family History Family Medical History: No Pertinent Family History - Caffeine Use Caffeine Use: Reports: Coffee - Living Situation & Occupation Living situation: Reports: Occupation: Employed ED ROS GENERAL - Review of Systems Review Of Systems: See Below Constitutional: Reports: Fatigue. Denies: Fever, Chills, Malaise, Weakness, Decreased Appetite, Weight Loss (Mild) HEENT: Reports: Glasses, Hearing Loss (Wears hearing aid right ear) Respiratory: Reports: Shortness of Breath, Cough, Sputum. Denies: Wheezing, Pleuritic Chest Pain, Hemoptysis (Yellow sputum for the last week), Other Cardiovascular: Reports: Blood Pressure Problem, Dyspnea on Exertion, Lightheadedness (Sometimes from coughing so hard). Denies: Chest Pain, Claudication, Edema, Orthopnea, Palpitations Endocrine: Reports: Fatigue GI/Abdominal: Reports: No Symptoms : Reports: Frequency, Other (Slow urinary stream. Known BPH. Nocturia x1-2) Musculoskeletal: Reports: Back Pain, Joint Pain (Chronic pain difficulty ambulating right knee) Skin: Reports: No Symptoms Neurological: Reports: No Symptoms Psychiatric: Reports: No Symptoms Hematologic/Lymphatic: Reports: No Symptoms Immunologic: Reports: No Symptoms ED EXAM, GENERAL - Physical Exam Exam: See Below Exam Limited By: No Limitations General Appearance: Alert, WD/WN, No Apparent Distress, Other (Temperature is 36.9 degrees. Heart rate 98 sinus. Respiratory rate is 22/min with O2 sats 100% room air. BP is 135/89.) Eye Exam: Bilateral Eye: Normal Inspection (No blepharal pallor or scleral icterus), PERRL Ears: Normal TMs Throat/Mouth: Normal Inspection, Normal Lips, Normal Teeth, Normal Oropharynx Head: Atraumatic, Normocephalic Neck: Normal Inspection, Supple, Non-Tender, Full Range of Motion. No: Carotid Bruit, Lymphadenopathy (L), Lymphadenopathy (R) Respiratory/Chest: No Accessory Muscle Use, Respiratory Distress (Mild tachypnea), Rhonchi (Few rhonchi right lung base), Other (Well-healed midline sternotomy incision). No: No Respiratory Distress, Lungs Clear, Normal Breath Sounds, Rales, Wheezing Cardiovascular: Normal Peripheral Pulses, Regular Rate, Rhythm, No Edema, No Gallop, No Murmur, No Rub Peripheral Pulses: 2+: Carotid (L), Carotid (R), Posterior Tibial (L), Posterior Tibial (R), Dorsalis Pedis (L), Dorsalis Pedis (R) GI/Abdominal: Normal Bowel Sounds, Soft, Non-Tender, No Organomegaly, No Abnormal Bruit, No Mass, Pelvis Stable, Other (No surgical scars) Back Exam: Normal Inspection, Full Range of Motion. No: CVA Tenderness (L), CVA Tenderness (R) Extremities: Normal Inspection, Normal Range of Motion, No Pedal Edema, Other (Tenderness with increased warmth right knee with osteoarthritic changes) Neurological: Alert, Oriented, CN II-XII Intact, Normal Cognition Psychiatric: Normal Affect, Normal Mood Skin Exam: Warm, Dry, Intact, Normal Color, No Rash Course - Vital Signs Last Recorded V/S: Last Vital Signs Temp 35.8 C L 08/16/21 11:50 Pulse 92 08/16/21 11:50 Resp 16 08/16/21 11:50 BP 111/81 08/16/21 11:50 Pulse Ox 96 08/16/21 11:50 - Orders/Labs/Meds Orders: Active Orders 24 hr Category Date Time Status Peripheral IV Insertion Adult [OM.PC] Stat Oth 08/16/21 09:03 Ordered Labs: Laboratory Tests 08/16/21 08/16/21 08/16/21 Range/Units 09:05 09:10 09:10 WBC 7.67 (4.23-9.07) K/mm3 RBC 4.92 (4.63-6.08) M/mm3 Hgb 15.6 (13.7-17.5) gm/dl Hct 46.7 (40.1-51.0) % MCV 94.9 H (79.0-92.2) fl MCH 31.7 (25.7-32.2) pg MCHC 33.4 (32.2-35.5) g/dl RDW Std Deviation 45.0 H (35.1-43.9) fL Plt Count 227 (163-337) K/mm3 MPV 9.3 L (9.4-12.3) fl Neut % (Auto) 64.8 (34.0-67.9) % Lymph % (Auto) 15.4 L (21.8-53.1) % Hendricks % (Auto) 13.3 H (5.3-12.2) % Eos % (Auto) 5.6 (0.8-7.0) Baso % (Auto) 0.4 (0.1-1.2) % Neut # (Auto) 4.97 (1.78-5.38) K/mm3 Lymph # (Auto) 1.18 L (1.32-3.57) K/mm3 Hendricks # (Auto) 1.02 H (0.30-0.82) K/mm3 Eos # (Auto) 0.43 (0.04-0.54) K/mm3 Baso # (Auto) 0.03 (0.01-0.08) K/mm3 Sodium 140 (136-145) mEq/L Potassium 4.1 (3.5-5.1) mEq/L Chloride 104 (98-107) mEq/L Carbon Dioxide 25 (21-32) mEq/L Anion Gap 15.1 H (5-15) BUN 19 H (7-18) mg/dL Creatinine 1.1 (0.7-1.3) mg/dL Est Cr Clr Drug Dosing 60.83 mL/min Estimated GFR (MDRD) > 60 (>60) mL/min BUN/Creatinine Ratio 17.3 (14-18) Glucose 110 H (70-99) mg/dL Calcium 8.8 (8.5-10.1) mg/dL Magnesium 2.2 (1.8-2.4) mg/dL Total Bilirubin 0.8 (0.2-1.0) mg/dL AST 26 (15-37) U/L ALT 51 (16-63) U/L Alkaline Phosphatase 101 (46-116) U/L Troponin I < 0.017 (0.00-0.056) ng/mL C-Reactive Protein 7.8 H* (<1.0) mg/dL NT-Pro-B Natriuret Pep (0-125) pg/mL Total Protein 7.4 (6.4-8.2) g/dl Albumin 3.5 (3.4-5.0) g/dl Globulin 3.9 gm/dL Albumin/Globulin Ratio 0.9 L (1-2) SARS-CoV-2 RNA (JUNE) Negative (NEGATIVE) 08/16/21 Range/Units 09:10 WBC (4.23-9.07) K/mm3 RBC (4.63-6.08) M/mm3 Hgb (13.7-17.5) gm/dl Hct (40.1-51.0) % MCV (79.0-92.2) fl MCH (25.7-32.2) pg MCHC (32.2-35.5) g/dl RDW Std Deviation (35.1-43.9) fL Plt Count (163-337) K/mm3 MPV (9.4-12.3) fl Neut % (Auto) (34.0-67.9) % Lymph % (Auto) (21.8-53.1) % Hendricks % (Auto) (5.3-12.2) % Eos % (Auto) (0.8-7.0) Baso % (Auto) (0.1-1.2) % Neut # (Auto) (1.78-5.38) K/mm3 Lymph # (Auto) (1.32-3.57) K/mm3 Hendricks # (Auto) (0.30-0.82) K/mm3 Eos # (Auto) (0.04-0.54) K/mm3 Baso # (Auto) (0.01-0.08) K/mm3 Sodium (136-145) mEq/L Potassium (3.5-5.1) mEq/L Chloride (98-107) mEq/L Carbon Dioxide (21-32) mEq/L Anion Gap (5-15) BUN (7-18) mg/dL Creatinine (0.7-1.3) mg/dL Est Cr Clr Drug Dosing mL/min Estimated GFR (MDRD) (>60) mL/min BUN/Creatinine Ratio (14-18) Glucose (70-99) mg/dL Calcium (8.5-10.1) mg/dL Magnesium (1.8-2.4) mg/dL Total Bilirubin (0.2-1.0) mg/dL AST (15-37) U/L ALT (16-63) U/L Alkaline Phosphatase (46-116) U/L Troponin I (0.00-0.056) ng/mL C-Reactive Protein (<1.0) mg/dL NT-Pro-B Natriuret Pep 166 H (0-125) pg/mL Total Protein (6.4-8.2) g/dl Albumin (3.4-5.0) g/dl Globulin gm/dL Albumin/Globulin Ratio (1-2) SARS-CoV-2 RNA (JUNE) (NEGATIVE) Meds: Medications Discontinued Medications Generic Name Dose Route Start Last Admin Trade Name Freq PRN Reason Stop Dose Admin Furosemide 40 mg 08/16/21 09:04 08/16/21 09:20 Furosemide 40 Mg/4 Ml Vial IVPUSH 08/16/21 09:05 40 mg NOW ONE Administration Sodium Chloride 10 ml 08/16/21 09:03 08/16/21 09:22 Sodium Chloride 0.9% 10 Ml Syringe FLUSH 10 ml ASDIRECTED PRN Administration Keep Vein Open - Radiology Interpretation Free Text/Narrative:: 75-year-old male presents to the ED for evaluation of a paroxysmal productive cough for the better part of a week. Feels it is gradually getting worse. Slight yellow sputum production no hemoptysis. Few rhonchi appreciated right lung base on exam. O2 sats 100% room air. Afebrile. Clinically no convincing evidence of COVID-19 illness. Plan 1 view chest x-ray to be done. - Re-Assessments/Exams Free Text/Narrative Re-Assessment/Exam: 08/16/21 09:03 portable chest x-ray reveals that the left heart border is ill- defined with a hazy infiltrate in this area. This has more the appearance of diffuse vascular congestion. No pleural effusion evident. Cardiac silhouette is upper limits of normal. Mediastinum is normal. Slight tortuosity of the thoracic aorta appreciated. We will proceed with lab work including BNP and serum magnesium. He will also have a COVID-19 screen. Of note he normally takes Lasix 20 mg twice weekly but admits he has not taken it for the last week. 08/16/21 10:11 chest x-ray over read by the radiologist reveals lung markings to be slightly increased which appear to be stable. Heart size is within normal limits for portable technique. Prior sternotomy is noted with surgical clips combined with CABG. Left shoulder prosthesis also identified.Hematology reveals a normal white count at 7.67. Differential reveals 64.8% neutrophils on the auto differential. Hemoglobin is 15.6 with hematocrit of 46.7 MCV mildly elevated 94.9. Platelet count normal at 227,000. COVID-19 screen is negative. 08/16/21 10:52 Chemistry reveals a sodium of 140 and a potassium of 4.1. Chloride 104 the bicarb of 25. Anion gap is 15.1. BUN is 19 with a creatinine of 1.1 and a GFR greater than 60. Glucose is 110. Calcium 8.8. Magnesium 2.2. Liver function is normal. Troponin I is less than 0.017 C-reactive protein is elevated at 7.8 total protein 7.4 with an albumin fraction of 3.5 Covid screen was negative as mentioned previously. Awaiting a BNP 08/16/21 11:16 BNP is normal at 166. For diagnosis is bronchitis with an elevated CRP. I will treat him with doxycycline 100 mg twice daily for the next 10 days and Tussionex cough syrup 5 mils primarily once daily at bedtime for cough relief. Departure - Departure Time of Disposition: 11:19 Disposition: Home, Self-Care 01 Condition: Fair Clinical Impression: Bronchitis - Discharge Information *PRESCRIPTION DRUG MONITORING PROGRAM REVIEWED*: Not Applicable *COPY OF PRESCRIPTION DRUG MONITORING REPORT IN PATIENT CORDELIA: Not Applicable Prescriptions: Hydrocodone/Chlorphen P-Stirex [Hydrocodone-Chlorphen ER Susp] 5 ml PO Q12H PRN #60 ml PRN Reason: Paroxysmal cough Doxycycline [Vibra-Tabs] 100 mg PO Q12HR #20 tab Instructions: Acute Bronchitis, Adult Referrals: George Wade MD [Primary Care Provider] - Forms: ED Department Discharge Additional Instructions: Evaluation in the emergency room today in regards to worsening productive cough over the last week. Chest x-ray revealed some infiltrates along the left heart border suggesting fluid collection within the lungs. No definite pneumonia was identified. Lab test done revealed the heart is still functioning very well with a little bit of extra fluid accumulation in the lungs but not enough to ch heather her Lasix dosage. Continue to use it twice weekly as prescribed. Treatment today will be cough syrup Tussionex 5 mils to be used primarily by an hour before bed to help relieve paroxysmal severe cough and allow you to sleep better. Antibiotic is to be doxycycline 100 mg twice daily for the next 10 days to clear up infection. Noted takes a couple of days for the antibiotics to become effective and you should see improvement in 72 to 96 hours. Of note your COVID-19 screen was negative. Sepsis Event Note (ED) - Evaluation Sepsis Screening Result: No Definite Risk - Focused Exam Vital Signs: Vital Signs Temp Pulse Resp BP Pulse Ox 08/16/21 11:50 35.8 C L 92 16 111/81 96 08/16/21 08:23 36.9 C 90 22 H 135/89 100 - My Orders Last 24 Hours: My Active Orders 08/16/21 09:03 Peripheral IV Insertion Adult [OM.PC] Stat - Assessment/Plan Last 24 Hours: My Active Orders 08/16/21 09:03 Peripheral IV Insertion Adult [OM.PC] Stat
[2021-08-16] MEDS ORDERED: Sodium Chloride 0.9% 10 ML Syringe FLUSH PRN (09:03)
[2021-08-16] MEDS ORDERED: Furosemide 40 MG/4 ML VIAL IVPUSH ONE (09:04)
--- NOTE | 2021-08-16 09:52 | CR ---
Chest: Portable view of the chest was obtained. Comparison: Prior chest CT study of and chest x-ray of 02/08/21. Lung markings are slightly increased which appear to be stable. Heart size is within normal limits for portable technique. Prior sternotomy is noted with surgical clips compatible with CABG. Left shoulder prosthesis is noted. Impression: 1. Stable findings as described above. 2. Nothing acute is appreciated on portable chest x-ray. Diagnostic code #2
[2021-08-16 11:56] VITALS: BP 111/81; PULSE 92
== END 2021-08-16 11:55 | disposition home or self-care (01) ==
LOC: JD.ED 08:02
DX: J40 Bronchitis, not specified as acute or chronic (principal); I25.10 Atherosclerotic heart disease of native coronary artery without angina pectoris; I10 Essential (primary) hypertension; K21.9 Gastro-esophageal reflux disease without esophagitis; N40.0 Benign prostatic hyperplasia without lower urinary tract symptoms; M19.90 Unspecified osteoarthritis, unspecified site; Z88.2 Allergy status to sulfonamides; Z79.82 Long term (current) use of aspirin; Z79.899 Other long term (current) drug therapy; Z20.822 Contact with and (suspected) exposure to COVID-19; R06.02 Shortness of breath
CPT/HCPCS: 36415; 71045; 80053; 83735; 83880; 84484; 85025; 86140; 96374; 99283; J1940; U0002; 99284

== ENCOUNTER 2022-03-16 14:49 | Emergency (ER) | payer MEDICARE, OTHER ==
[2022-03-16 15:21] VITALS: BP 123/79; PULSE 75
== END 2022-03-16 17:00 | disposition home or self-care (01) ==
LOC: JD.ED 14:49
DX: S70.01XA Contusion of right hip, initial encounter (principal); I25.10 Atherosclerotic heart disease of native coronary artery without angina pectoris; I10 Essential (primary) hypertension; Z88.2 Allergy status to sulfonamides; Z79.899 Other long term (current) drug therapy; Z79.82 Long term (current) use of aspirin; Z86.16 Personal history of COVID-19; W18.39XA Other fall on same level, initial encounter
CPT/HCPCS: 72170; 72170-26; 73552-26-RT; 73552-RT; 99283